=== PATIENT | female | born 1975 | race Caucasian/White ===

== ENCOUNTER 2017-03-10 11:15 | Emergency (ER) | payer BC ==
[~2017-03-10] VITALS: Ht 180.3 cm; Wt 90.9 kg
[2017-03-10 11:19] VITALS: TEMP 36.5; Ht 180.3 cm; Wt 90.9 kg
[2017-03-10] MEDS ORDERED: ONDANSETRON INJ 2 MG/ML 2 ML VIAL IV STA (11:31)
[2017-03-10] MEDS ORDERED: SODIUM CHLORIDE 0.9% 1000ML 1,000 ML IV STA (11:31)
[2017-03-10] MEDS ORDERED: HYDROmorphone INJ 0.5 MG/0.5 ML SYR IV PRN (11:45)
[2017-03-10] MEDS ORDERED: DOXY25TA7 PO (11:48)
[2017-03-10] MEDS ORDERED: DIPH1LIQ PO (11:48)
[2017-03-10 12:19] LABS: BASO % 0.4 %; BASO ABS # 0.04 K/uL (0-0.2); EOS ABS # 0.27 K/uL (0-0.5); HEMATOCRIT 39.2 % (37-47); HEMOGLOBIN 14.3 g/dL (12.0-16.0); IG# 0.02 K/uL (0.00-0.02); LYMPH % 19.8 %; LYMPH ABS # 1.81 K/uL (1.2-3.4); MEAN CELL VOLUME 81.7 fL (80-100); MEAN CORPUSCULAR HEMOGLOBIN 29.8 pg (25-34); MEAN CORPUSCULAR HGB CONC 36.5 g/dl (32-36); MEAN PLATELET VOLUME 11.6 fL (7.4-10.4); MONO % 5.4 %; MONO ABS # 0.49 K/uL (0.11-0.59); NEUT % 71.2 %; PLATELET COUNT 207 K/uL (130-400); RED CELL DISTRIBUTION WIDTH CV 13.7 % (11.5-14.5); RED CELL DISTRIBUTION WIDTH SD 40.9 fL (36.4-46.3); WHITE BLOOD COUNT 9.13 K/uL (4.8-10.8)
[2017-03-10 12:35] LABS: ALBUMIN 3.9 gm/dl (3.4-5.0); CALCIUM 9.3 mg/dl (8.5-10.1); CREATININE 0.98 mg/dl (0.60-1.20); POTASSIUM 3.6 mmol/L (3.5-5.1)
--- NOTE | 2017-03-10 13:35 | DIAGNOSTIC IMAGING REPORT ---
ABD/PELVIS WITHOUT FOR STONE CT DOSE: 1511.51 mGy.cm HISTORY: Flank pain FLANK PAIN-right TECHNIQUE: Multiaxial CT images of the abdomen and pelvis were performed without the use of intravenous and oral contrast according to the standard department stone protocol. A dose lowering technique was utilized adhering to the principles of ALARA. COMPARISON STUDY: None. FINDINGS: Lung bases are clear. Liver spleen and pancreas are unremarkable. Left kidney is negative for hydronephrosis. Right kidney shows slight fullness of the right renal collecting system and right ureter. This appears to be secondary to extrinsic impact upon the ureter from a large fibroid projecting from the superior aspect of the uterus. This has maximum dimensions of 14 x 10 cm. Small associated calcifications are present. Bowel pattern is nonobstructive. There is a trace amount of free fluid within the lower paracolic gutters bilaterally. This may be reactive and/or secondary to extrinsic impact upon the bowel by the fibroid previously described. Bladder is midline. There are no contained calcifications. There is no significant free fluid within the pelvic cul-de-sac. Visualized components of the appendix are unremarkable. The bowel the cecum and associated surrounding structures are somewhat compressed by the fibroid. There are no bowel obstructive changes IMPRESSION: 1. Large uterine fibroid measuring 14 x 10 cm. 2. This appears to be creating extrinsic impact upon the upon the bowel as well as distal right ureter. 3. Mild fullness of the right ureter and right renal collecting system presumably secondary to this extrinsic compressive effect. 4. Study is otherwise negative. The above report was generated using voice recognition software. It may contain grammatical, syntax or spelling errors. Electronically signed by: Ganga Lewis M.D. 03/10/2017 1:34 PM Dictated Date/Time: 03/10/2017 1:26 PM
[2017-03-10] MEDS ORDERED: OXYC1TAB3 PO (14:41)
[2017-03-10 15:10] VITALS: BP 135/79; PULSE 82; O2SAT 96
--- NOTE | 2017-03-10 16:55 | EMERGENCY ROOM VISIT NOTE ---
History Report prepared by Kala: Kailee Stevens Under the Supervision of: Dr. Deep Mendiola M.D. First contact with patient: 11:22 Chief Complaint: FLANK PAIN Stated Complaint: SEVERE PAIN LOWER RIGHT SIDE OF BACK TO FRONT History of Present Illness The patient is a 41 year old female who presents to the Emergency Room with complaints of right-sided flank pain beginning 2 days ago. She rates the pain at a 9/10. The patient states that the pain started in her back and then radiated to her flank. She states that she has noticed that her urine has been darker and states that she has never had a pain like this before. The patient denies rashes and vomiting, but does note having nausea. The patient denies a family history of kidney stones and gall bladder problems. Source of History: patient Onset: 2 days ago Position: other (right flank) Symptom Intensity: rated at a 9/10 Associated Symptoms: + nausea, + urinary symptoms (darker urine), No vomiting, No rash Review of Systems See HPI for pertinent positives and negatives. A total of ten systems were reviewed and were otherwise negative. Past Medical & Surgical Medical Problems: (1) Dermoid cyst (2) Rotator cuff injury Family History No pertinent family history stated. Social History Smoking Status: Never Smoker Marital Status: Housing Status: lives with roommate Current/Historical Medications Scheduled PRN Diphenhydramine Hcl (Sleep) (Zzzquil), 30 ML PO HS PRN for Sleep Doxylamine Succinate (Sleep) (Unisom), 25 MG PO HS PRN for Sleep Oxycodone Ir (Roxicodone Ir), 1-2 TAB PO Q4H PRN for Pain Allergies Coded Allergies: Banana (Verified Allergy, Unknown, ANAPHYLAXIS, 03/10/17) Egg (Verified Allergy, Unknown, ANAPHYLAXIS, 03/10/17) Soy Protein (Verified Allergy, Unknown, ANAPHYLAXIS, 03/10/17) Physical Exam Vital Signs Date Time Temp Pulse Resp B/P (MAP) Pulse Ox O2 Delivery O2 Flow Rate FiO2 03/10/17 15:10 82 18 135/79 96 03/10/17 14:52 67 17 135/79 98 Room Air 03/10/17 13:06 68 17 117/77 98 Room Air 03/10/17 11:19 36.5 85 20 126/72 98 Room Air Physical Exam GENERAL: Awake, alert, uncomfortable-appearing, in no distress HENT: Normocephalic, atraumatic. Oropharynx unremarkable. EYES: Normal conjunctiva. Sclera non-icteric. NECK: Supple. No nuchal rigidity. FROM. No JVD. RESPIRATORY: Clear to auscultation. CARDIAC: Regular rate, normal rhythm. Extremities warm and well perfused. Pulses equal. ABDOMEN: Soft, non-distended. No tenderness to palpation. No rebound or guarding. No masses. RECTAL: Deferred. MUSCULOSKELETAL: Chest examination reveals no tenderness. The back is symmetrical on inspection without obvious abnormality. There is right CVA tenderness to palpation. No joint edema. LOWER EXTREMITIES: Calves are equal size bilaterally and non-tender. No edema. No discoloration. NEURO: Normal sensorium. No sensory or motor deficits noted. SKIN: No rash or jaundice noted. Medical Decision & Procedures ER Provider Diagnostic Interpretation: Radiology results as stated below per my review and radiologist interpretation: ABD/PELVIS WITHOUT FOR STONE CT DOSE: 1511.51 mGy.cm HISTORY: Flank pain FLANK PAIN-right TECHNIQUE: Multiaxial CT images of the abdomen and pelvis were performed without the use of intravenous and oral contrast according to the standard department stone protocol. A dose lowering technique was utilized adhering to the principles of ALARA. COMPARISON STUDY: None. FINDINGS: Lung bases are clear. Liver spleen and pancreas are unremarkable. Left kidney is negative for hydronephrosis. Right kidney shows slight fullness of the right renal collecting system and right ureter. This appears to be secondary to extrinsic impact upon the ureter from a large fibroid projecting from the superior aspect of the uterus. This has maximum dimensions of 14 x 10 cm. Small associated calcifications are present. Bowel pattern is nonobstructive. There is a trace amount of free fluid within the lower paracolic gutters bilaterally. This may be reactive and/or secondary to extrinsic impact upon the bowel by the fibroid previously described. Bladder is midline. There are no contained calcifications. There is no significant free fluid within the pelvic cul-de-sac. Visualized components of the appendix are unremarkable. The bowel the cecum and associated surrounding structures are somewhat compressed by the fibroid. There are no bowel obstructive changes IMPRESSION: 1. Large uterine fibroid measuring 14 x 10 cm. 2. This appears to be creating extrinsic impact upon the upon the bowel as well as distal right ureter. 3. Mild fullness of the right ureter and right renal collecting system presumably secondary to this extrinsic compressive effect. 4. Study is otherwise negative. The above report was generated using voice recognition software. It may contain grammatical, syntax or spelling errors. Electronically signed by: Ganga Lewis M.D. 03/10/2017 1:34 PM Dictated Date/Time: 03/10/2017 1:26 PM Laboratory Results 03/10/17 12:00 Red Blood Count 4.80, Mean Corpuscular Volume 81.7, Mean Corpuscular Hemoglobin 29.8, Mean Corpuscular Hemoglobin Concent 36.5, Mean Platelet Volume 11.6, Neutrophils (%) (Auto) 71.2, Lymphocytes (%) (Auto) 19.8, Monocytes (%) (Auto) 5.4, Eosinophils (%) (Auto) 3.0, Basophils (%) (Auto) 0.4, Neutrophils # (Auto) 6.50, Lymphocytes # (Auto) 1.81, Monocytes # (Auto) 0.49, Eosinophils # (Auto) 0.27, Basophils # (Auto) 0.04 03/10/17 12:00 Test 03/10/17 11:35 03/10/17 12:00 Urine Color YELLOW Urine Appearance CLEAR (CLEAR) Urine pH 5.0 (4.5-7.5) Urine Specific [place] 1.016 (1.000-1.030) Urine Protein NEG (NEG) Urine Glucose (UA) NEG (NEG) Urine Ketones NEG (NEG) Urine Occult Blood NEG (NEG) Urine Nitrite NEG (NEG) Urine Bilirubin NEG (NEG) Urine Urobilinogen NEG (NEG) Urine Leukocyte Esterase MODERATE (NEG) Urine WBC (Auto) 10-30 /hpf (0-5) Urine RBC (Auto) 5-10 /hpf (0-4) Urine Hyaline Casts (Auto) 1-5 /lpf (0-5) Urine Epithelial Cells (Auto) 20-30 /lpf (0-5) Urine Bacteria (Auto) NEG (NEG) Urine Test NEG (NEG) White Blood Count 9.13 K/uL (4.8-10.8) Red Blood Count 4.80 M/uL (4.2-5.4) Hemoglobin 14.3 g/dL (12.0-16.0) Hematocrit 39.2 % (37-47) Mean Corpuscular Volume 81.7 fL (80-100) Mean Corpuscular Hemoglobin 29.8 pg (25-34) Mean Corpuscular Hemoglobin Concent 36.5 g/dl (32-36) Platelet Count 207 K/uL (130-400) Mean Platelet Volume 11.6 fL (7.4-10.4) Neutrophils (%) (Auto) 71.2 % Lymphocytes (%) (Auto) 19.8 % Monocytes (%) (Auto) 5.4 % Eosinophils (%) (Auto) 3.0 % Basophils (%) (Auto) 0.4 % Neutrophils # (Auto) 6.50 K/uL (1.4-6.5) Lymphocytes # (Auto) 1.81 K/uL (1.2-3.4) Monocytes # (Auto) 0.49 K/uL (0.11-0.59) Eosinophils # (Auto) 0.27 K/uL (0-0.5) Basophils # (Auto) 0.04 K/uL (0-0.2) RDW Standard Deviation 40.9 fL (36.4-46.3) RDW Coefficient of Variation 13.7 % (11.5-14.5) Immature Granulocyte % (Auto) 0.2 % Immature Granulocyte # (Auto) 0.02 K/uL (0.00-0.02) Anion Gap 6.0 mmol/L (3-11) Est Creatinine Clear Calc Drug Dose 94.0 ml/min Estimated GFR () 83.0 Estimated GFR (Non- 71.6 BUN/Creatinine Ratio 14.8 (10-20) Calcium Level 9.3 mg/dl (8.5-10.1) Total Bilirubin 0.8 mg/dl (0.2-1) Direct Bilirubin 0.2 mg/dl (0-0.2) Aspartate Amino Transf (AST/SGOT) 8 U/L (15-37) Alanine Aminotransferase (ALT/SGPT) 28 U/L (12-78) Alkaline Phosphatase 129 U/L (45-117) Total Protein 8.0 gm/dl (6.4-8.2) Albumin 3.9 gm/dl (3.4-5.0) Lipase 143 U/L (73-393) Laboratory results reviewed by me Medications Administered Medications (Trade) Dose Ordered Sig/Daya Route Start Time Stop Time Status Last Admin Dose Admin Ondansetron HCl (Zofran Inj) 4 mg NOW STAT IV 03/10/17 11:31 03/10/17 11:33 DC 03/10/17 12:16 4 MG Sodium Chloride 1,000 ml @ 999 mls/hr Q1H1M STAT IV 03/10/17 11:31 03/10/17 12:31 DC 03/10/17 12:16 999 MLS/HR Hydromorphone HCl (Dilaudid Inj) 0.5 mg Q15M PRN IV 03/10/17 11:45 03/10/17 15:30 DC 03/10/17 12:21 0.5 MG ED Course 1130: The patient was evaluated in room C9. A complete history and physical exam was performed. 1131: Ordered Sodium Chloride 1,000 ml @ 999 mls/hr IV, Zofran Inj 4 mg IV. 1145: Ordered Dilaudid Inj 0.5 mg IV. 1435: Discussed the patient's case with Dr. De Jesus. Dr. De Jesus instructed that the patient call the office for follow-up. 1445: I reevaluated the patient. Discussed results and discharge instructions: She verbalized understanding and agreement. The patient is ready for discharge. Medical Decision Triage Nursing notes reviewed and agree them. Additional history obtained from the family. The patient's history was concerning for flank and abdominal pain. Differential diagnosis: Etiologies such as renal colic, appendicitis, diverticulitis, mesenteric ischemia, aortic pathology, infections, inflammatory bowel disease, PUD, biliary pathology, UTI, as well as others were entertained. Physical examination findings: As above. ER treatment provided: IV Zofran IV Dilaudid IV normal saline On reassessment the patient felt better. Diagnostic interpretation by me: The labs revealed workup CBC and chemistry panel. Urinalysis revealed no significant abnormalities. There was no sign of UTI. Imaging studies: CT of the abdomen and pelvis as above. Consultation: A consultation was placed with the industrial pharmacist recreational therapist, Dr. De Jesus. The case was discussed and diagnostics were reviewed. Given the findings of the significant size of the fibroid the patient will need to be seen urgently in the office. She asked for the patient to call Sunday. It appears that the patient has isolated renal colic from a ureteral compression secondary to a 10 x 14 cm uterine fibroid. By the evaluation outlined above emergent etiologies such as appendicitis, diverticulitis, mesenteric ischemia, aortic pathology, infections, inflammatory bowel disease, PUD, biliary pathology, UTI, as well as others were deemed relatively unlikely. The and were informed about the findings as listed above. All questions were answered and they were pleased with the treatment. Return instructions were outlined and the patient was discharged in stable condition. Outpatient prescription management: Oxy IR 5mg 1-2 po Q4 hrs prn Referral: The pt was referred to [facility] for follow up care regarding her significant fibroid. [place] Drug Monitoring Program Search Results: patient reviewed within database Drug Monitoring Findings: primary prescriptions noted but nothing recently Medication Reconcilliation Current Medication List: was personally reviewed by me Blood Pressure Screening Patient's blood pressure: Normal blood pressure Consults Time Called: 1433 [facility] Returned Call: [phone] Discussed the patient's case. The patient will be evaluated for further treatment and disposition. Impression Primary Impression: Right flank pain Additional Impression: Uterine fibroid Scribe Attestation The scribe's documentation has been prepared under my direction and personally reviewed by me in its entirety. I confirm that the note above accurately reflects all work, treatment, procedures, and medical decision making performed by me. Departure Information Dispostion Home / Self-Care Prescriptions Oxycodone Ir (Roxicodone Ir) 5 Mg Tab 1-2 TAB PO Q4H Y for Pain, #15 TAB Prov: Deep Mendiola MD 03/10/17 Referrals No Doctor, Assigned (PCP) Velia Rhodes M.D. Forms HOME CARE DOCUMENTATION FORM, IMPORTANT VISIT INFORMATION Patient Instructions My [facility] Additional Instructions Oxycodone Immediate Release (OxyIR) 5mg: Take 1-2 pills every four hours for pain. Avoid alcohol, operating machinery or dangerous equipment, working on ladders or roofs, DRIVING, or situations where being under the influence may be dangerous. It is recommended to use an [id number]-pvauxte stool softener such as Colace, 100mg twice daily while taking this medication to avoid constipation. Ibuprofen(Motrin, Advil) may be used for fever or pain. Use 600mg every six hours as needed. Take with food. Avoid using more than 2400mg in a 24 hour period. Do not use 2400mg per day for more than three consecutive days without physician direction. Prolonged inappropriate use can lead to stomach upset or ulcers. This medication can be taken if you need to drive, work, or perform activities which may be dangerous when taking narcotic pain medication. (AND/OR) Acetaminophen(Tylenol) may be used for fever or pain. Use 1000mg every six hours as needed. Avoid using more than 4000mg in a 24 hour period. This medication can be taken if you need to drive, work, or perform activities which may be dangerous when taking narcotic pain medication. Rest and avoid strenuous activity until your symptoms resolve. Drink plenty of fluids. Return to the ER for worsening abdominal or back pain, vomiting, fevers, passing out, or as needed. Follow up with [facility] office Sunday to arrange a visit. The number is listed below under Dr. De Jesus. Problem Qualifiers
== END 2017-03-10 15:12 | disposition home or self-care (01) ==
LOC: C.EDB 11:17 → C.EDC 15:12
DX: D25.9 Leiomyoma of uterus, unspecified (principal)

== ENCOUNTER → 2017-03-14 | Outpatient (CLI) | payer BC ==
[~2017-03-14] MED LIST: DIPH1LIQ PO; DOXY25TA7 PO; IBUP-1050 PO; MELATAB2 PO; OXYC1TAB3 PO; PROM25TA9 PO; TRAM-10 PO
== END | disposition home or self-care (01) ==
LOC: C.PAPS 09:36
PROVIDERS: ATTEND Obstetrics & Gynecology
DX: Z12.4 Encounter for screening for malignant neoplasm of cervix (principal)

== ENCOUNTER → 2017-03-19 | Outpatient (CLI) | payer BC ==
[2017-03-19 14:19] LABS: BASO % 0.3 %; BASO ABS # 0.03 K/uL (0-0.2); EOS % 1.4 %; EOS ABS # 0.13 K/uL (0-0.5); HEMOGLOBIN 13.6 g/dL (12.0-16.0); IG# 0.03 K/uL (0.00-0.02); LYMPH % 13.6 %; LYMPH ABS # 1.29 K/uL (1.2-3.4); MEAN CELL VOLUME 81.9 fL (80-100); MEAN CORPUSCULAR HEMOGLOBIN 29.3 pg (25-34); MEAN CORPUSCULAR HGB CONC 35.8 g/dl (32-36); MEAN PLATELET VOLUME 11.9 fL (7.4-10.4); MONO % 4.6 %; MONO ABS # 0.44 K/uL (0.11-0.59); NEUT % 79.8 %; NEUT ABS # 7.58 K/uL (1.4-6.5); PLATELET COUNT 227 K/uL (130-400); RED CELL DISTRIBUTION WIDTH CV 13.7 % (11.5-14.5); RED CELL DISTRIBUTION WIDTH SD 41.4 fL (36.4-46.3)
== END | disposition home or self-care (01) ==
LOC: C.LAB1850 13:28
PROVIDERS: ATTEND Obstetrics & Gynecology
DX: R10.2 Pelvic and perineal pain (principal)

== ENCOUNTER → 2017-03-19 | Outpatient (CLI) | payer BC | END | disposition home or self-care (01) | LOC: C.PATHSPEC 17:28 | PROVIDERS: ATTEND Obstetrics & Gynecology | DX: N85.00 Endometrial hyperplasia, unspecified (principal); D25.9 Leiomyoma of uterus, unspecified ==

== ENCOUNTER 2017-03-26 07:46 | Inpatient (IN) | payer BC ==
[2017-03-20 15:44] VITALS: BMI 29.0
[2017-03-26] VITALS (8 sets, daily range): BP systolic 105–136; BP diastolic 35–91; PULSE 60–101; TEMP 36.3–36.9; O2SAT 94–99; Ht 177.8 cm; Wt 90.9 kg
[~2017-03-26] VITALS: Ht 177.8 cm; Wt 90.9 kg
[~2017-03-26 07:46] MED LIST changes: -DIPH1LIQ PO; -DOXY25TA7 PO; +LACTATED RINGER'S 1000ML 1,000 ML IV SCH; -OXYC1TAB3 PO
--- NOTE | 2017-03-26 09:29 | History & Physical Bridge Note ---
H&P Re-Evaluation Bridge Note: I have examined the patient, reviewed the History & Physical and in the interval since the performance of the History & Physical I have noted the following changes of clinical significance: No changes noted
[2017-03-26] MEDS ORDERED: METHYLENE BLUE 0.5% 10 ML VIAL ONE (09:31)
[2017-03-26] MEDS ORDERED: BUPIVACAINE 0.5 % 5 MG/1 ML MPF 30ML VIAL ONE (09:31)
[2017-03-26] MEDS ORDERED: MIDAZOLAM HCL 1 MG/ML 2ML VIAL ONE (09:37)
[2017-03-26] MEDS ORDERED: FENTANYL CITRATE INJ 50 MCG/1 ML 2 ML VIAL ONE ×4 (09:38→12:25)
[2017-03-26] MEDS ORDERED: CLINDAMYCIN 600 MG/54 ML D5W IV ONE (09:38)
[2017-03-26] MEDS ORDERED: ETOMIDATE 2 MG/ML 20 ML VIAL IV ONE (10:17)
[2017-03-26] MEDS ORDERED: ONDANSETRON INJ 2 MG/ML 2 ML VIAL ONE ×2 (10:18→12:47)
[2017-03-26] MEDS ORDERED: ROCURONIUM BROMIDE 10 MG/ML 5 ML VIAL IV ONE ×2 (10:18→10:39)
[2017-03-26] MEDS ORDERED: NEOSTIGMINE METHYLSULFATE 5 MG/5 ML SYR ONE (10:19)
[2017-03-26] MEDS ORDERED: GLYCOPYRROLATE INJ 0.2 MG/ML VIAL ONE (10:19)
[2017-03-26] MEDS ORDERED: DEXAMETHASONE SOD INJ 4 MG/ML VIAL ONE (10:19)
[2017-03-26] MEDS ORDERED: DEXTROSE 5% IV SCH (10:45)
[2017-03-26] MEDS ORDERED: NURSING VERBAL MED ORDER ONE (10:45)
[2017-03-26] MEDS ORDERED: GENTAMICIN IV SCH (10:45)
[2017-03-26] MEDS ORDERED: PHENYLEPHRINE 100MCG/ML 5ML SYR ONE (11:08)
[2017-03-26] MEDS ORDERED: HYDROmorphone INJ 1 MG/ML SYR IV PRN (11:45)
[2017-03-26] MEDS ORDERED: FENTANYL CITRATE INJ 50 MCG/1 ML 2 ML VIAL IV PRN (11:45)
[2017-03-26] MEDS ORDERED: LABETALOL HCL IV 5 MG/ML 20ML IV PRN (11:45)
[2017-03-26] MEDS ORDERED: ATROPINE SULFATE 0.1 MG/ML 5ML SYR IV PRN (11:45)
[2017-03-26] MEDS ORDERED: ONDANSETRON INJ 2 MG/ML 2 ML VIAL IV PRN ×2 (11:45→12:30)
[2017-03-26] MEDS ORDERED: EpHEDrine SULFATE INJ 50 MG/ML AMP IV PRN (11:45)
[2017-03-26] MEDS ORDERED: MEPERIDINE HCL 25 MG/ML CARP IV PRN (11:45)
[2017-03-26] MEDS ORDERED: LACTATED RINGER'S 1000ML 1,000 ML IV SCH (12:23)
[2017-03-26] MEDS ORDERED: SODIUM CHLORIDE 0.9% 1000ML 1,000 ML IV SCH (12:23)
--- NOTE | 2017-03-26 12:23 | [facility] Post Operative Brief Note ---
Immediate Operative Summary Operative Date Mar 26, 2017. Pre-Operative Diagnosis Leiomyoma Uteri, Pelvic Pain Post-Operative Diagnosis same, degenerating fibroid Procedure(s) Performed 1. diagnostic laparoscopy 2. total abdominal hysterectomy 3. excision pedunculated fibroid 4. bilateral salpingectomies. Surgeon Dr. Chaudhari Manager Medical Affairs Surgeon(s) Dr. Archuleta Estimated Blood Loss 50 Findings See Below (large [id number] fibroid emanating from broad attachment of about 4cm at uterus posterior right fundus. normal ovaries bilaterally. left ovary with some filmy adhesions to colon. normal fallopian tubes bilaterally) as noted Fluids (cc crystalloids) 1000 Specimens Frozen 1.Presumed Right Fibroid Drains dorman Anesthesia Type General Complication(s) none Disposition Accompanied Pt To Recover: no Disposition: Recovery Room / PACU
[2017-03-26] MEDS ORDERED: NALOXONE HCL 0.4 MG/1 ML VIAL/CARP IV PRN (12:30)
[2017-03-26] MEDS ORDERED: OXYCODONE/ACETAMINOPHEN 5-325 TAB PO PRN (12:30)
[2017-03-26] MEDS ORDERED: KETOROLAC TROMETHAMINE 30 MG/ML VIAL IV. PRN (12:30)
--- NOTE | 2017-03-26 12:42 | DIAGNOSTIC IMAGING REPORT ---
KUB CLINICAL HISTORY: INCORRECT COUNT COMPARISON STUDY: CT of the abdomen and pelvis March 10, 2017. FINDINGS: The bowel gas pattern is normal. Extraluminal gas within the pelvis is postsurgical. There are no unexpected radiopaque foreign bodies within the mid to lower abdomen or pelvis. IMPRESSION: No unexpected radiopaque foreign bodies. Electronically signed by: Khai Verde M.D. 03/26/2017 12:41 PM Dictated Date/Time: 03/26/2017 12:41 PM
[2017-03-26] MEDS ORDERED: HYDROmorphone INJ 1 MG/ML SYR ONE (12:44)
[2017-03-26] MEDS: FENTANYL CITRATE INJ 50 MCG/1 ML 2 ML VIAL ONE ×2 (12:45→13:01)
[2017-03-26] MEDS ORDERED: MoRPHine SULFATE 1 MG/ML 50 ML PCA CASS ONE (12:57)
--- NOTE | 2017-03-26 13:25 | OPERATIVE REPORT ---
DATE OF OPERATION: 03/26/2017 PREOPERATIVE DIAGNOSES: 1. Fibroid uterus. 2. Pelvic pain. POSTOPERATIVE DIAGNOSES: 1. Same. 2. Degenerating fibroid. PROCEDURES: 1. Diagnostic laparoscopy. 2. Total abdominal hysterectomy. 3. Excision of fibroid. 4. Bilateral salpingectomies. SURGEON: Dr. Bren Chaudhari. DIE FINISHER: Dr. Vadim Archuleta. INTRAVENOUS FLUIDS: 1000 mL. BLOOD LOSS: 50 mL. ANESTHESIA: General. FINDINGS: 14 x 14 cm fibroid emanating from a l4cm broad attachment on the posterior right uterus. Normal ovaries and fallopian tubes bilaterally. Normal uterus. Left ovary with some filmy adhesions to the colon on the left. INDICATIONS: A 41-year-old who has completed her childbearing, who presented approximately 2 weeks ago to the Emergency Room with severe pelvic pain and evidence of a large fibroid uterus. She was evaluated and opted to proceed with surgical removal of fibroid uterus. We planned to keep the ovaries in situ if they appeared normal. She did have a history of a prior dermoid cyst removal on the left ovary. DESCRIPTION OF PROCEDURE: The patient was taken to the operating room and identified. After adequate general anesthesia was obtained, she was placed in the dorsal lithotomy position and prepped and draped in the usual sterile fashion. A Johnson catheter was placed under sterile conditions. Attempt was made to dilate the cervix after the cervix was grasped on its anterior lip with an Allis clamp; however, this was difficult and therefore stopped. All retractors were removed. Attention was turned to the patient's abdomen, where a Veress needle puncture hole was made at the infraumbilical site and a pneumoperitoneum was created with the Veress needle after an opening pressure of approximately 6 mmHg. An incision site was made in the left upper quadrant and an 11-mm optical trocar was placed under direct visualization to the peritoneal cavity. The camera was introduced and the patient was placed in Trendelenburg. A large mass was encountered that appeared to be emanating from the right uterus, mobile to the left; however, very large. It was blanched in its appearance and had some irregularity to its surface. The uterus was of top normal size but the ovaries were not well seen. Given that an additional 5-mm trocar site was created suprapubically, first creating skin incision and then placing under direct visualization a 5-mm trocar. This allowed a blunt grasper to be placed, which could elevate the uterus, revealing normal left and right ovaries bilaterally, apart from some adhesions as noted above. The mass was again large and firm and decision was made to discontinue the laparoscopic procedures and proceed to open abdominal hysterectomy and excision of the mass for frozen section evaluation. The patient was flattened out. A knife was used to create a low vertical incision that was carried down to the underlying layer of fascia. The fascia was opened in the midline with the cautery. This was extended superior and inferiorly using the cautery. The rectus muscles were bluntly in the midline. The peritoneum was elevated with 2 hemostats and sharply entered into using the knife. This opening was extended superiorly and inferiorly with direct visualization of the bladder. The opening was stretched. The opening was extended towards the pubic bone. This allowed for elevation of the mass and visualization of its attachment to the right posterior fundus. This attachment was broad. It was cross clamped using Azeb clamps coming from each side. This specimen was completely transected and handed off to be sent for frozen section. The capsule of it seemed had a irregular contour and was very blanched. The stumps at the site of transection on the uterus were suture transfixed with 0 Vicryl to allow for removal of the clamps that were attached to the uterus itself. At this point, the decision was made to proceed with the planned hysterectomy. Two Azeb clamps were used to elevate the cornu on each side. The right round ligament was elevated using a Britt clamp. It was suture transfixed. It was then transected with Bovie cautery and the anterior and posterior leaves of the broad ligament were opened up into. It is important to mention that at the time of laparoscopy, the ureter was seen coursing well below the mass on the right side. Once again, the ureter was thought to be coursing well below the planned operative site. Clear space was made in the uteroovarian ligament and the uterine ovarian and broad ligament attachments were cross clamped doubly and then transected. The pedicle was suture transfixed and free tied with 0 Vicryl. The uterine artery pedicle was skeletonized on this side and the bladder flap was begun on the right side. Attention was then turned to the left round ligament, which was elevated, suture transfixed and then transected with Bovie cautery. The anterior and posterior leaves of the broad ligament were also opened up into and the ureter was seen coursing well below the planned operative site. A free space was created beneath the uterine ovarian pedicle on the left side. It was crossclamped x2 and transected. The pedicle was both free tied and suture transfixed with 0 Vicryl. The uterine artery was also skeletonized on this side and the bladder was pushed well away from the planned operative site. Using curved Cisco clamps as well as a straight Cisco clamps, the uterine artery pedicles were doubly cross clamped, transected and doubly ligated. The remaining cardinal ligament attachments were further taken down sequentially using the clamp followed by transection and suture ligation. Once the dissection was thought to be well enough to come across underneath the cervix, two curved Cisco clamps were used to come underneath the cervix. The cervix was carved away from the upper vagina. Pedicles were then suture transfixed with 0 Vicryl. The cuff was then closed with interrupted [id number] sutures of 0 Vicryl. The pelvis was irrigated. There was no active bleeding from the cuff site. The bilateral fallopian tubes were elevated and were transected and sent as specimen. The ureters were seen coursing well below the operative site as well as being of normal size. At this point, the procedure was terminated. During the course of the surgery, the pathologist did call with the findings of the frozen sections, which were degenerating fibroid and typical leiomyoma. All the retractors were removed as well as any packing. The fascia was reapproximated in the modified Smead-Godwin fashion using #1 PDS. Subcutaneous fat was irrigated. It was reapproximated using 2-0 chromic. The skin incisions were closed in a subcuticular fashion using 4-0 Vicryl. This included a left upper quadrant laparoscopic incision. The laparoscopic incision site and the veress needle site were injected with Marcaine and dressed with Dermabond. Steri-Strips were applied the vertical skin incision site and routine dressing was also applied. The patient was returned to supine position. She was awoken from anesthesia. All sponge and needle counts were correct however, the instrument count was off and therefore , an x-ray was performed showing no instruments within the abdomen. At this point, the procedure was terminated. She was transferred to the recovery room in stable condition. I attest to the content of the Intraoperative Record and any orders documented therein. Any exceptions are noted below. MTDD
--- NOTE | 2017-03-26 13:47 | Anesthesiology Progress Note ---
Anesthesia Post Op Note Date & Time Mar 26, 2017 at 13:47 Vital Signs Pain Intensity: 5 Vital Signs Past 12 Hours Date Time Temp Pulse Resp B/P (MAP) Pulse Ox O2 Delivery O2 Flow Rate FiO2 03/26/17 13:41 112/59 03/26/17 13:40 36.4 58 12 112/59 99 Nasal Cannula 2 03/26/17 13:37 73 15 03/26/17 13:37 76 15 98 03/26/17 13:36 93/81 03/26/17 13:34 62 10 03/26/17 13:34 60 10 99 03/26/17 13:31 94/61 03/26/17 13:29 61 10 03/26/17 13:29 63 10 97 03/26/17 13:26 119/65 03/26/17 13:24 53 14 03/26/17 13:24 52 14 98 03/26/17 13:21 100/67 03/26/17 13:19 60 16 03/26/17 13:19 57 16 98 03/26/17 13:17 112/50 03/26/17 13:14 57 13 03/26/17 13:14 58 13 99 03/26/17 13:11 119/76 03/26/17 13:09 60 19 99 03/26/17 13:09 61 19 03/26/17 13:07 114/67 03/26/17 13:04 61 10 100 03/26/17 13:04 60 10 03/26/17 13:01 111/62 03/26/17 12:59 68 19 03/26/17 12:59 70 19 99 03/26/17 12:57 117/49 03/26/17 12:54 54 10 98 03/26/17 12:54 53 10 03/26/17 12:51 111/67 03/26/17 12:49 51 14 03/26/17 12:49 51 14 98 03/26/17 12:46 123/83 03/26/17 12:44 57 03/26/17 12:44 57 127/80 99 03/26/17 12:44 36.3 56 14 123/83 99 Nasal Cannula 2 03/26/17 08:10 36.8 101 20 136/91 (106) 99 Room Air Notes Mental Status: alert / awake / arousable, participated in evaluation Pt Amnestic to Procedure: Yes Nausea / Vomiting: adequately controlled, improving with treatment Pain: adequately controlled Airway Patency, RR, SpO2: stable & adequate BP & HR: stable & adequate Hydration State: stable & adequate Anesthetic Complications: no major complications apparent
[2017-03-26] MEDS ORDERED: PROMETHAZINE HCL INJ 12.5 MG in SODIUM CHLORIDE 0.9% 50ML 50 ML IV PRN (14:00)
[2017-03-26] MEDS ORDERED: KETOROLAC TROMETHAMINE 30 MG/ML VIAL ONE (14:41)
[2017-03-26] MEDS: MoRPHine SULFATE 1 MG/ML 50 ML PCA CASS IV PRN ×2 (19:13→21:49)
[2017-03-27] MEDS: IBUPROFEN 600 MG TAB PO PRN ×2 (03:24→12:52)
[2017-03-27 03:45] VITALS: BP 105/67; PULSE 67; TEMP 36.8
[2017-03-27] MEDS ORDERED: NURSING VERBAL MED ORDER ONE (04:00)
[2017-03-27 07:30] VITALS: BP 103/74; PULSE 72; TEMP 36.7
--- NOTE | 2017-03-27 07:32 | Discharge Instructions ---
Discharge Instructions Date of Service Mar 27, 2017. Admission Reason for Admission: Leiomyoma Uteri, Pelvic Pain Discharge Discharge Diagnosis / Problem: after surgery Discharge Goals Goal(s): Routine recovery after surgery Activity Recommendations Activity Limitations: as noted below . Instructions / Follow-Up Instructions / Follow-Up ACTIVITY RECOMMENDATIONS: Activity: * During the first week at home, your activity should be similar to that done at the hospital prior to discharge. Your primary activity is in-house walking interspersed with rest periods. Preparing lunch for yourself is acceptable. You may go up and down stairs. Try to stay up progressively longer periods of time to help regain your strength more quickly. * During the second week at home, activities should include some meal preparation, walking to strengthen abdominal muscles and riding in a car. You may drive a car and make brief shopping trips at the end of the second week at home. * Lifting should not exceed 15-20 pounds during the first month after surgery. * Sexual intercourse can usually be resumed about 6 weeks after surgery depending on findings at your post-operative examinations. Bathing: * Showers or baths are permissible. SPECIAL CARE INSTRUCTIONS: The major discomforts related to surgery have now passed and progressive improvement will occur. The tight uncomfortable feeling in the abdominal, pelvic and back area will gradually fade away. Fatigue may take the longest to disappear; your energy level may take several weeks to return to normal. At times you may become frustrated or impatient over not feeling as well or doing as much as you'd like , but this is a normal reaction to surgery and will pass with time. Vaginal Discharge: * Odorous, blood-tinged or brownish discharge may be present for one to three weeks after surgery. * Pads should be used and not tampons. * Stitches may be passed vaginally. * Bleeding may be somewhat increased approximately two weeks after surgery, which is related to the stitches dissolving. * If bleeding becomes free flowing, notify our office at . Bowel Care: * Constipation after surgery is very common. Foods that promote bowel activity (bran, fruit, prune juice) should be included in your diet. * A capsule, DIALOSE-PLUS, can be purchased without a prescription and can be taken daily (one or two capsules) to assist in promoting bowel activity. * If you have had vaginal surgery involving your rectum, we will discuss this when discharged from the hospital. Temperature: * Any fever above 100.4 degrees F should be reported to our office at . FOLLOW-UP: Post-Operative Appointments: * Individual instructions will have been given about the timing of your first examination, but this is usually at the end of the second week home. * You will need to call the office at soon after discharge to make the appointment for your post-op check-up if it has not already been scheduled. * Additional information regarding activity, sexual intercourse and when to return to work will be given at this appointment. WE WISH YOU A SPEEDY RECOVERY! Current Hospital Diet Patient's current hospital diet: Full Liquid Diet Discharge Diet Recommended Diet: Regular Diet Procedures Procedures Performed: Diagnostic Laparoscopy; Total Abdominal Hysterectomy; Excision Fibroid; Bilateral Salpingectomies Pending Studies Studies pending at discharge: yes List of pending studies: pathology Medical Emergencies . Who to Call and When: Medical Emergencies: If at any time you feel your situation is an emergency, please call 911 immediately. . Non-Emergent Contact Non-Emergency issues call your: Hub Cutter Apprentice . . "Provider Documentation" section prepared by Bren Chaudhari. . VTE Core Measure Inpt VTE Proph given/why not?: SCD's [place] Drug Monitoring Program Search Results: patient reviewed within database, no issues identified
[2017-03-27 08:14] LABS: BASO % 0.1 %; BASO ABS # 0.01 K/uL (0-0.2); EOS % 0.1 %; EOS ABS # 0.02 K/uL (0-0.5); HEMATOCRIT 33.7 % (37-47); HEMOGLOBIN 11.3 g/dL (12.0-16.0); IG# 0.03 K/uL (0.00-0.02); LYMPH % 10.5 %; LYMPH ABS # 1.54 K/uL (1.2-3.4); MEAN CORPUSCULAR HEMOGLOBIN 28.2 pg (25-34); MEAN CORPUSCULAR HGB CONC 33.5 g/dl (32-36); MEAN PLATELET VOLUME 11.7 fL (7.4-10.4); MONO % 6.8 %; NEUT % 82.3 %; NEUT ABS # 12.01 K/uL (1.4-6.5); PLATELET COUNT 198 K/uL (130-400); RED CELL DISTRIBUTION WIDTH CV 14.1 % (11.5-14.5); RED CELL DISTRIBUTION WIDTH SD 43.6 fL (36.4-46.3); WHITE BLOOD COUNT 14.61 K/uL (4.8-10.8)
--- NOTE | 2017-03-27 08:19 | Progress Note ---
Progress Note Date of Service Mar 27, 2017. Progress Note s/ doing well, voiding, ambulating to br. no flatus yet. eating and no n/v. having itching and thinks its the percocet, wants to try ultram again. has about 4 tabs left at home. o/ af vss cor rrr, lungs ctab, abd soft nabs, mild tenderness incision bloody steris, intact. ext nt calves a/ pod #1 s/p PATRICK, fibroid removal p/ doing well, will see if ultram covers pain. ambulate, await flatus. can consider d/c later today or by tomorrow. pt aware.
[2017-03-27] MEDS ORDERED: TRAM-10 PO (08:20)
[2017-03-27] MEDS: TRAMADOL HCL 50 MG TAB PO PRN ×2 (09:15→14:59)
[2017-03-27 15:00] VITALS: BP 112/73; PULSE 88; TEMP 36.5
[2017-03-27 18:18] VITALS: BP 112/73; PULSE 88; TEMP 36.5; O2SAT 94
[2017-03-27 20:00] VITALS: BP 110/70; PULSE 80; TEMP 36.7; O2SAT 98
== END 2017-03-27 20:00 | disposition home or self-care (01) | DRG 743 ==
LOC: C.ACU 07:46 → C.MS4N 12:26 → ENRESERV 13:23 → C.OBG 21:44
PROVIDERS: ADMIT Obstetrics & Gynecology; ATTEND Obstetrics & Gynecology
PROC: 0UT70ZZ Resection of Bilateral Fallopian Tubes, Open Approach (ICD-10-PCS; principal; 2017-03-26 09:30)
PROC: 0UT90ZZ Resection of Uterus, Open Approach (ICD-10-PCS; principal; 2017-03-26 09:30)
DX: D25.9 Leiomyoma of uterus, unspecified (principal); F41.8 Other specified anxiety disorders; Z87.42 Personal history of other diseases of the female genital tract; Z86.19 Personal history of other infectious and parasitic diseases; Z83.3 Family history of diabetes mellitus

== ENCOUNTER 2017-03-30 08:23 | Emergency (ER) | payer BC ==
[~2017-03-30] VITALS: Ht 177.8 cm; Wt 88.4 kg
[~2017-03-30 08:23] MED LIST changes: -LACTATED RINGER'S 1000ML 1,000 ML IV SCH; -PROM25TA9 PO
[2017-03-30 08:26] VITALS: Ht 177.8 cm; Wt 88.4 kg
[2017-03-30] MEDS ORDERED: HYDROmorphone INJ 1 MG/ML SYR IV STA ×2 (08:57→09:57)
[2017-03-30] MEDS ORDERED: ONDANSETRON INJ 2 MG/ML 2 ML VIAL IV STA ×2 (08:57→11:26)
[2017-03-30] MEDS ORDERED: SODIUM CHLORIDE 0.9% 1000ML 1,000 ML IV STA (08:57)
[2017-03-30] MEDS ORDERED: OPTIRAY 320 IV PRN (09:15)
[2017-03-30 09:25] LABS: BASO % 0.3 %; BASO ABS # 0.02 K/uL (0-0.2); EOS % 4.1 %; HEMATOCRIT 33.1 % (37-47); HEMOGLOBIN 11.9 g/dL (12.0-16.0); IG# 0.02 K/uL (0.00-0.02); LYMPH % 16.8 %; LYMPH ABS # 1.22 K/uL (1.2-3.4); MEAN CELL VOLUME 82.5 fL (80-100); MEAN CORPUSCULAR HEMOGLOBIN 29.7 pg (25-34); MEAN PLATELET VOLUME 11.1 fL (7.4-10.4); MONO % 5.5 %; NEUT ABS # 5.31 K/uL (1.4-6.5); PLATELET COUNT 200 K/uL (130-400); RED CELL DISTRIBUTION WIDTH CV 13.6 % (11.5-14.5); RED CELL DISTRIBUTION WIDTH SD 41.1 fL (36.4-46.3); WHITE BLOOD COUNT 7.27 K/uL (4.8-10.8)
[2017-03-30 09:43] LABS: ALBUMIN 3.7 gm/dl (3.4-5.0); CREATININE 0.69 mg/dl (0.60-1.20); POTASSIUM 3.6 mmol/L (3.5-5.1)
[2017-03-30 09:46] LABS: TOTAL PROTEIN 7.6 gm/dl (6.4-8.2)
[2017-03-30 10:59] VITALS: TEMP 36.7
--- NOTE | 2017-03-30 11:24 | DIAGNOSTIC IMAGING REPORT ---
CT ABD/PELVIS IV AND ORAL CONT CLINICAL HISTORY: History of recent hysterectomy. Abdominal pain bloating. COMPARISON STUDY: 03/10/2017 TECHNIQUE: Following the IV administration of 94 mL of Optiray-320, CT scan of the abdomen and pelvis was performed from the lung bases to the proximal femurs. Images are reviewed in the axial, sagittal, and coronal planes. IV contrast was administered without complication. A dose lowering technique was utilized adhering to the principles of ALARA. CT DOSE: 607.05 mGy.cm FINDINGS: Lower chest: There are minimal left basilar atelectatic changes. Liver: There is a stable 1 cm lipoma within the right hepatic lobe. Gallbladder: Unremarkable. Spleen: Normal in size and attenuation. Pancreas: Unremarkable. Adrenal glands: Unremarkable. Kidneys: There is symmetric renal cortical enhancement. The kidneys are normal in size without hydronephrosis. Bowel: There are no transition zones to indicate bowel obstruction. There are no findings to indicate acute diverticulitis. The appendix is not visualized with certainty. There is mild infiltration of the pelvic fat, likely secondary to recent surgery. There is a small amount of intraperitoneal air, likely secondary to recent surgery. There is extraperitoneal air within the anterior abdominal wall. There is extraperitoneal air within the lower pelvis and perirectal region. Again the findings likely relate to recent surgery. Clinical follow-up will be necessary in this regard. Peritoneum: There is trace free fluid in the pelvis likely postsurgical Vasculature: The abdominal aorta is normal in course and caliber. Adenopathy: None. Pelvic viscera: The patient is status post a recent hysterectomy. Infiltration the pelvic fat is likely postsurgical. There are no walled off fluid collections to indicate an abscess. Skeletal structures: No destructive osseous lesions are seen. IMPRESSION: 1. Interval hysterectomy 2. Intraperitoneal air, retroperitoneal air, and abdominal wall air, likely secondary to recent surgery. Clinical follow-up is advocated 3. Small amount of free pelvic fluid. Infiltration the pelvic fat likely secondary to recent surgery. No current evidence of an abscess. 4. No evidence of bowel obstruction. Electronically signed by: Kendell Whitfield M.D. 03/30/2017 11:23 AM Dictated Date/Time: 03/30/2017 11:16 AM
[2017-03-30] MEDS ORDERED: ONDA4TAB10 SL ×2 (11:53)
[2017-03-30] MEDS ORDERED: HYDR-5688 PO ×2 (11:53)
[2017-03-30 12:05] VITALS: BP 110/72; PULSE 68; O2SAT 98
--- NOTE | 2017-03-31 17:22 | EMERGENCY ROOM VISIT NOTE ---
ED Visit Note First contact with patient: 08:33 Chief Complaint: Abdominal pain. History of Present Illness: Ms. Davis is a 41 year-old white female who ambulates into the ED accompanied by her complaining of abdominal pain. Historically patient reports she is 4 days status post open total abdominal hysterectomy. She reports since being home she has been having moderate to severe abdominal pain. She reports last night since being home she had her first bowel movement and had improvement of her pain. She has been taking her prescribed Ultram, ibuprofen and stool softeners without relief of her discomfort. Currently she describes her pain as a pressure-like sensation circumferentially around the abdomen and into the back. She rates her discomfort 10/10. Her pain is nonradiating, but does a pressure-like pain behind. As previously noted a small bowel movement last night decreased her pain but then it returned through the night shoulder. Her pain has been constant and she has not been able to sleep. Associated with her pain she reports she is having chills but has not to find any ashish fevers, she is nauseated but has not vomited, and a small amount of vaginal bleeding. Additionally she reports she is only been able to sleep for 8 hours since being home from the hospital because of her pain. Patient denies sweats, skin eruptions, skin color changes, upper respiratory tract symptoms, shortness of breath, chest pain, diarrhea, rectal bleeding, black/tarry stools, urinary symptoms, hematuria, vaginal bleeding, vaginal discharge. Review of Systems: As noted above in history of present illness. All body systems were reviewed and found to be negative as noted above. Past Medical History: As previously noted. Current Medications: Ultram, ibuprofen and melatonin. Allergies to Medications: Acetaminophen, amoxicillin, chlorhexidine, Augmentin, oxycodone, codeine, oxycodone. Social History: Patient is not employed; she feels safe in her home environment ; she denies tobacco and alcohol use. Physical Examination: Vital Signs: Date Time Temp Pulse Resp B/P (MAP) Pulse Ox O2 Delivery O2 Flow Rate FiO2 03/30/17 12:05 68 16 110/72 98 Room Air 03/30/17 10:59 36.7 73 18 114/64 98 Room Air 03/30/17 09:58 83 16 104/73 100 Room Air 03/30/17 09:17 82 03/30/17 08:26 36.7 102 20 135/92 99 Room Air GENERAL: 41-year-old female in moderate distress due to pain, nontoxic-appearing , afebrile and hemodynamically stable. NEUROLOGICAL: Awake, alert and oriented to person, place and time. Answering questions appropriately and following commands. Normal gait. Good hand eye coordination. SKIN: Warm, dry and pink. No soft tissue eruptions or trauma noted. HEENT: Atraumatic and normocephalic. PERRLA. Sclera white and conjunctiva pink. Oral cavity moist and pink. Pharynx is nonerythematous or edematous. Speech normal. No lymphadenopathy. Trachea midline. No jugular venous distention. BACK: No tenderness over the bony spine. No CVA tenderness. THORAX: Lungs sounds are clear to auscultation and equal bilaterally with symmetrical chest wall. No wheezing, rales or rhonchi. No crepitus, tenderness , subcutaneous air or deformities noted. HEART: Regular rate and rhythm. No gallops, rubs or murmurs are appreciated. ABDOMEN: Flat and soft with diffuse tenderness throughout. I do not appreciate any guarding or rebound. Her surgical incisions are clean dry and intact with no signs of infection. Decreased bowel sounds in all quadrants. No guarding, rigidity or organomegaly. EXTREMITIES: Moves all extremities well on command and with purpose. All distal neurovascular statuses are intact and equal bilaterally. ED Course: Patient is assessed as noted above. Patient's medication list was reviewed. Laboratory Testing: Test 03/30/17 09:10 03/30/17 09:30 Range/Units White Blood Count 7.27 4.8-10.8 K/uL Red Blood Count 4.01 4.2-5.4 M/uL Hemoglobin 11.9 12.0-16.0 g/dL Hematocrit 33.1 37-47 % Mean Corpuscular Volume 82.5 80-100 fL Mean Corpuscular Hemoglobin 29.7 25-34 pg Mean Corpuscular Hemoglobin Concent 36.0 32-36 g/dl Platelet Count 200 130-400 K/uL Mean Platelet Volume 11.1 7.4-10.4 fL Neutrophils (%) (Auto) 73.0 % Lymphocytes (%) (Auto) 16.8 % Monocytes (%) (Auto) 5.5 % Eosinophils (%) (Auto) 4.1 % Basophils (%) (Auto) 0.3 % Neutrophils # (Auto) 5.31 1.4-6.5 K/uL Lymphocytes # (Auto) 1.22 1.2-3.4 K/uL Monocytes # (Auto) 0.40 0.11-0.59 K/uL Eosinophils # (Auto) 0.30 0-0.5 K/uL Basophils # (Auto) 0.02 0-0.2 K/uL RDW Standard Deviation 41.1 36.4-46.3 fL RDW Coefficient of Variation 13.6 11.5-14.5 % Immature Granulocyte % (Auto) 0.3 % Immature Granulocyte # (Auto) 0.02 0.00-0.02 K/uL Sodium Level 137 136-145 mmol/L Potassium Level 3.6 3.5-5.1 mmol/L Chloride Level 104 98-107 mmol/L Carbon Dioxide Level 27 21-32 mmol/L Anion Gap 6.0 3-11 mmol/L Blood Urea Nitrogen 10 7-18 mg/dl Creatinine 0.69 0.60-1.20 mg/dl Est Creatinine Clear Calc Drug Dose 129.5 ml/min Estimated GFR () 125.3 Estimated GFR (Non- 108.1 BUN/Creatinine Ratio 14.4 10-20 Random Glucose 99 70-99 mg/dl Calcium Level 9.0 8.5-10.1 mg/dl Total Bilirubin 1.0 0.2-1 mg/dl Direct Bilirubin 0.3 0-0.2 mg/dl Aspartate Amino Transf (AST/SGOT) 15 15-37 U/L Alanine Aminotransferase (ALT/SGPT) 43 12-78 U/L Alkaline Phosphatase 112 45-117 U/L Total Protein 7.6 6.4-8.2 gm/dl Albumin 3.7 3.4-5.0 gm/dl Lipase 85 73-393 U/L Urine Color YELLOW Urine Appearance CLEAR CLEAR Urine pH 5.5 4.5-7.5 Urine Specific [place] 1.013 1.000-1.030 Urine Protein NEG NEG Urine Glucose (UA) NEG NEG Urine Ketones TRACE NEG Urine Occult Blood 1+ NEG Urine Nitrite NEG NEG Urine Bilirubin NEG NEG Urine Urobilinogen NEG NEG Urine Leukocyte Esterase TRACE NEG Urine WBC (Auto) 1-5 0-5 /hpf Urine RBC (Auto) 5-10 0-4 /hpf Urine Hyaline Casts (Auto) 0 0-5 /lpf Urine Epithelial Cells (Auto) 10-20 0-5 /lpf Urine Bacteria (Auto) NEG NEG Contrast Abdominal/Pelvic CT: Were reviewed by myself and read by the radiologist showing interval hysterectomy, intraperitoneal air, retroperitoneal air and abdominal wall air. A small amount of free pelvic fluid. Infiltration of the pelvic fat with no evidence of abscess. No evidence of bowel obstruction. Patient was hydrated with normal saline, and she received a total of 2 mg of Dilaudid IV for pain, total of 8 mg of Zofran IV. Patient was reassessed multiple times during her stay in the emergency department. Patient's case was reviewed with Dr. Martin; we agreed on diagnostic approach, treatment, disposition and plan per Patient's case was consulted with Dr. Franco, diesel engine i pipe fitter; ; she recommended the patient be discharged home, a small amount of narcotic pain control, encouraged eating and the addition of MiraLAX and return for worsening/ uncontrolled symptoms. Patient was educated about today's findings and instructed on her treatment plan ; she verbalized understanding and agreement with this plan. Clinical Impression: Postoperative abdominal pain. Decision-Making: Initially my differential diagnosis I considered bowel obstruction, perforated viscus, postsurgical infection, postsurgical bleeding, constipation and other causes. Disposition: Patient discharged home in stable condition accompanied by her ; prior to departure she was reassessed and subjectively reported that she was pain-free. Plan: Comfort measures were discussed with the patient including a sliding pain medication scale of ibuprofen, [place] minutes and then [place]; she was given appropriate narcotic precautions and her name was checked to the state database and no red flags were noted. Patient was encouraged to use Colace and follow-up Route diet for the next few days until return to normal symptoms. Patient currently use Zofran 4 mg every 6 hours as needed for nausea/vomiting. Patient was encouraged to stay well-hydrated with increased clear fluids. Patient was encouraged to keep her upcoming appointment with her surgery for definitive care and treatment. Patient was encouraged return ED for worsening/uncontrolled pain, bloody stools , fevers, bloody vomitus, skin eruptions, high/itchy skin or any new/concerning symptoms.
== END 2017-03-30 12:08 | disposition home or self-care (01) ==
LOC: C.EDB 08:24 → C.EDA 12:08
DX: G89.18 Other acute postprocedural pain (principal); Z90.710 Acquired absence of both cervix and uterus; Z79.899 Other long term (current) drug therapy

== ENCOUNTER 2017-03-30 14:57 | Observation (INO) | payer BC ==
[~2017-03-30] VITALS: Ht 177.8 cm; Wt 88.7 kg
[~2017-03-30 14:57] MED LIST changes: +HYDR-5688 PO; +ONDA4TAB10 SL
[2017-03-30] MEDS ORDERED: ONDANSETRON INJ 2 MG/ML 2 ML VIAL IV STA (15:24)
[2017-03-30] MEDS ORDERED: SODIUM CHLORIDE 0.9% 500ML 500 ML IV STA (15:24)
[2017-03-30] MEDS ORDERED: PROMETHAZINE HCL INJ 6.25 MG in SODIUM CHLORIDE 0.9% 50ML 50 ML IV STA (15:24)
[2017-03-30] MEDS ORDERED: MoRPHine SULFATE 4 MG/ML 1 ML CARP\\VIAL IV PRN (15:30)
--- NOTE | 2017-03-30 15:36 | EMERGENCY ROOM VISIT NOTE ---
History Report prepared by Kala: Nic Vegas Under the Supervision of: Dr. Edvin Welch M.D. First contact with patient: 15:16 Chief Complaint: VOMITING Stated Complaint: HERE EARLIER, CANT KEEP ANYTHING DOWN Nursing Triage Summary: see triage note History of Present Illness The patient is a 41 year old female who presents to the Emergency Room with complaints of persistent vomiting that she began to experience today. The patient was in the emergency department earlier today for abdominal pain, bloating, and nausea after a recent incisional hysterectomy. The patient had an incisional hysterectomy performed this past Sunday, 4 days prior to this visit. She has been experiencing significant pain and nausea since this procedure. The patient was discharged with a Zofran prescription after her previous visit today , but continued to vomit constantly for the 90-120 minutes that she was home. She is concerned that she is going to tear her incisional stitches if she continues to vomit to this severity. She has also been constipated lately and is taking MiraLax. Her hysterectomy was done by Dr. Chaudhari. Source of History: patient Onset: Today Position: other (GI) Quality: other (Vomiting ) Timing: constant Associated Symptoms: + abdominal pain Review of Systems See HPI for pertinent positives & negatives. A total of 10 systems reviewed and were otherwise negative. Past Medical & Surgical Medical Problems: (1) Dermoid cyst (2) Fibroid, uterine (3) Nausea and vomiting (4) Pelvic pain (5) Rotator cuff injury Surgical Problems: (1) Post-operative state (2) Postoperative state Family History No pertinent family histories discussed. Social History Smoking Status: Never Smoker Marital Status: Housing Status: lives with roommate Current/Historical Medications Scheduled Ibuprofen (Advil), 600 MG PO PRN Melatonin (Melatonin Maximum Strengt), 5 MG PO HS Ondasetron Odt (Zofran Odt), 4 MG SL Q6H Scheduled PRN Hydrocodone/Acetaminophen 5MG/325MG ([place] 5MG/325MG), 1 TABLET PO Q6 PRN for Pain Tramadol (Ultram), 50 MG PO Q6H PRN for RN Allergies Coded Allergies: Acetaminophen (Unverified Allergy, Unknown, HIVES, 03/30/17) Amoxicillin (Verified Allergy, Unknown, ANAPHYLAXIS, 03/30/17) Banana (Verified Allergy, Unknown, ANAPHYLAXIS, 03/30/17) Chlorhexidine (Verified Allergy, Unknown, red;itchy;burning skin, 03/30/17) Clavulanic Acid (Verified Allergy, Unknown, ANAPHYLAXIS, 03/30/17) Codeine (Verified Allergy, Unknown, NAUSEA, 03/30/17) Dairy (Verified Allergy, Unknown, WHOLE MILK-GI UPSET VOMITING-TONGUE SWELLS, 03/30/17) Egg (Verified Allergy, Unknown, ANAPHYLAXIS, 03/30/17) Oxycodone (Unverified Allergy, Unknown, HIVES, 03/30/17) Soy Protein (Verified Allergy, Unknown, ANAPHYLAXIS, 03/30/17) Physical Exam Vital Signs Date Time Temp Pulse Resp B/P (MAP) Pulse Ox O2 Delivery O2 Flow Rate FiO2 03/30/17 17:24 36.3 72 16 115/77 97 03/30/17 17:06 72 16 115/77 97 Room Air 03/30/17 16:27 72 16 97 03/30/17 16:18 73 20 112/74 96 Room Air 03/30/17 16:17 68 03/30/17 16:16 112/74 03/30/17 15:11 36.3 79 20 127/89 99 Room Air Physical Exam GENERAL: Patient is in no acute distress. HEENT: No acute trauma, normocephalic atraumatic, mucous membranes moist, no nasal congestion, no scleral icterus. NECK: No stridor, no adenopathy, no meningismus, trachea is midline. LUNGS: Clear to auscultation bilaterally, no wheeze, no rhonchi, breath sounds equal. HEART: Without murmurs gallops or rubs, regular rate and rhythm. ABDOMEN: The abdomen is somewhat bloated and diffusely tender but there is no peritonitis. Bowel sounds are positive. The hysterectomy incision is healing and without signs of infection. EXTREMITIES: No cyanosis or edema, full range of motion of all the joints without pain or difficulty, no signs for acute trauma. NEUROLOGIC: Oriented x 3, no acute motor or sensory deficits, no focal weakness. SKIN: No rash, no jaundice, no diaphoresis. Medical Decision & Procedures Medications Administered Medications (Trade) Dose Ordered Sig/Daya Route Start Time Stop Time Status Last Admin Dose Admin Sodium Chloride 500 ml @ 999 mls/hr Q31M STAT IV 03/30/17 15:24 03/30/17 15:54 DC 03/30/17 15:35 999 MLS/HR Morphine Sulfate (MoRPHine SULFATE INJ) 4 mg Q15M PRN IV 03/30/17 15:30 04/13/17 15:29 03/30/17 15:41 4 MG Ondansetron HCl (Zofran Inj) 4 mg NOW STAT IV 03/30/17 15:24 03/30/17 15:31 DC 03/30/17 15:40 4 MG Promethazine HCl 6.25 mg/Sodium Chloride 50.25 ml @ 204 mls/hr NOW STAT IV 03/30/17 15:24 03/30/17 15:38 DC 03/30/17 15:59 204 MLS/HR Lactated Ringer's 1,000 ml @ 125 mls/hr Q8H IV 03/30/17 16:34 04/29/17 16:33 03/30/17 17:06 125 MLS/HR ED Course 1518: The patient was evaluated in room B11B. A complete history and physical exam was performed. 1524: Ordered Promethazine HCl 50.25 mL @ 204 mL/hr IV, Zofran 4 mg IV, Sodium Chloride 500 mL @ 999 mL/hr IV. 1526: I discussed the case with Dr. Watson LARA. She will come to the department to observe the patient for possible admission to the hospital. 1530: Ordered Morphine Sulfate 4 mg IV. Medical Decision Differential Diagnosis includes; dehydration, bowel obstruction, failed outpatient treatment, ileus, post surgical vomiting. The patient presents after being home just a few hours, she was in the ED earlier. She has not been able to control her vomiting despite Zofran. She recently underwent a hysterectomy-- 4 days ago. Reviewing the patient's workup from earlier today, there was no bowel obstruction or abscess seen by CT. No leukocytosis, no concerning anemia. No significant electrolyte abnormality, kidney failure, hepatitis or pancreatitis. Urinalysis did not show infection. Currently, on exam, the patient's abdomen is somewhat distended and mildly tender, no peritonitis, bowel sounds are positive. The patient is failing outpatient treatment. I do think a hospital stay for symptom control and hydration is warranted. I spoke to the patient and case management. The application packaging consultant [employer] SALES SUPERVISOR doctor was consulted. Consults Time Called: 1521 Consulting Physician: Dr. Watson LARA Returned Call: [phone] I discussed the case with Dr. Watson LARA. She will come to the department to observe the patient for possible admission to the hospital. Impression Primary Impression: Vomiting Additional Impressions: Failure of outpatient treatment Status post hysterectomy Scribe Attestation The scribe's documentation has been prepared under my direction and personally reviewed by me in its entirety. I confirm that the note above accurately reflects all work, treatment, procedures, and medical decision making performed by me. Departure Information Dispostion Being Evaluated By Surgeon Referrals No Doctor, Assigned (PCP) Patient Instructions My [facility] Problem Qualifiers
[2017-03-30] MEDS ORDERED: MoRPHine SULFATE 2 MG/ML CARP IV PRN (16:45)
[2017-03-30] MEDS ORDERED: ONDANSETRON INJ 2 MG/ML 2 ML VIAL IV PRN (16:45)
[2017-03-30] MEDS ORDERED: IV FLUIDS COMPLETED PRN (16:45)
[2017-03-30] MEDS: LACTATED RINGER'S 1000ML 1,000 ML IV SCH (17:06)
[2017-03-30] MEDS: IBUPROFEN 600 MG TAB PO PRN ×2 (17:58→23:34)
[2017-03-30] MEDS: ZOLPIDEM TARTRATE 5 MG TAB PO PRN ×2 (17:58→20:43)
[2017-03-30 18:05] VITALS: BP 133/80; PULSE 71; TEMP 37; O2SAT 97; Ht 177.8 cm; Wt 88.7 kg
--- NOTE | 2017-03-30 18:10 | HISTORY & PHYSICAL EXAMINATION ---
DATE OF ADMISSION: 03/30/2017 CHIEF COMPLAINT: Nausea and vomiting. HISTORY OF PRESENT ILLNESS: A 41-year-old 3, para 3 who presents to the Emergency Room for the second time, now complaining of nausea and vomiting. The patient has recently undergone total abdominal hysterectomy with removal of a large fibroid that was situated in the right mid to upper quadrant as well as bilateral salpingectomies. This surgery was done on Sunday. She is postop day #4. She was discharged to home on her postop day #1. At that time, she was tolerating a regular diet, voiding spontaneously, ambulating and was passing small amounts of gas. She notes that her postoperative course since that time has been eventful with gas pain. She had episodes of times of severe pain and has had poor sleep. She has had gas pains and has been able to tolerate food and liquids and has done a lot of walking. She has been voiding fine without any difficulty. She denies any fevers. She was improved yesterday evening after she used a suppository and passed a small bowel movement as well as gas. She spent the evening with her family watching TV and feeling quite well. Unfortunately, overnight she worsened. This morning, she woke up in severe abdominal pain. She called the on-call physician who advised her to come to the Emergency Room. She was evaluated in the Emergency Room earlier today and ultimately discharged to home. At that time, she underwent evaluation to include a CBC with a normal white count of 7.27 and hemoglobin 11.9. Chemistries that were normal. Urine that did have trace ketones and occult blood and trace leukocyte esterase, but no bacteria. She also underwent imaging studies that showed typical postsurgical changes after interval hysterectomy and no evidence of bowel obstruction. There was a small amount of free pelvic fluid and infiltration of the pelvic fat, likely secondary to the recent surgery with no evidence of abscess. She notes on the way home from that Emergency Room visit, she began vomiting. It persisted when she came home. For that reason, she came back to the Emergency Room. I was called by Dr. Welch who evaluated her in the Emergency Room for this visit. Given that she could not keep anything down, the decision was made to bring her into the hospital for observation. PAST MEDICAL HISTORY: depression with anxiety, history of an ovarian cyst that was a dermoid on the left that was removed; history of leiomyoma and pelvic pain, managed with surgery on Sunday. PAST SURGICAL HISTORY: Carpal tunnel surgery, hand surgery, knee surgery, history laparoscopy with dermoid removal, rotator cuff repair, wisdom tooth extraction and recent total abdominal hysterectomy and bilateral salpingectomies and removal of large fibroid. FAMILY HISTORY: Father with diabetes. SOCIAL HISTORY: Nonsmoker, no alcohol use. . MEDICATIONS: Motrin, tramadol, Zofran. ALLERGIES: AUGMENTIN, CODEINE, AMOXICILLIN, EGGS, DAIRY, CHLORHEXIDINE, BANANAS. REVIEW OF SYSTEMS: Per the HPI, she denies any urinary symptoms. She notes a muscular twitching pain in the right mid back and right upper quadrant that can take her breath away. It does not seem that her significant pain is incisional. She feels that the pain that she is feeling right now is different from the pain prior to her surgery. She denies any vaginal discharge. She is reporting extremely poor sleep and the remainder is per the HPI and otherwise negative. PHYSICAL EXAMINATION: VITAL SIGNS: Temp 36.3, pulse 72, respirations 16, blood pressure 115/77; her pulse ox is 97% on room air. GENERAL: She is an overall well-appearing female in the Emergency Room bed, lying supine. She has intermittent twitching of her face related to what she says is a sudden acute sharp stabbing pain. ABDOMEN: Soft, mild appropriate tenderness incisionally and suprapubically. Incision is bruised, but otherwise intact. She has no CVA tenderness. She has no rebound or guarding. EXTREMITIES: Nontender. ASSESSMENT: 1. Nausea and vomiting. 2. Postoperative state. PLAN: I discussed with the patient that is unclear to me the cause of her nausea and vomiting; however, due to her return to the Emergency Room, I feel prudent to admit her for IV fluids and bowel rest. I am wondering if the twitching pain that she is feeling is related to the prior presence of the mass in the right mid quadrant and so we will try some warm moist heat to alleviate any musculoskeletal component of the pain. She has a lot of pain medication sensitivities and therefore we will try to use morphine IV, oxycodone p.o. and Motrin p.o. to help her pain management. Additionally, I think she would benefit from some sleep and so we have ordered Ambien as well as Phenergan IV that could aide in drowsiness and sleep. She is advised to utilize these things. We would recommend keeping her nothing to eat or drink by mouth other than sips with medications. We will follow her closely and determine if further studies are indicated based on her response to our current plan for bowel rest. She verbalized understanding of this plan and is in agreement. FITO
[2017-03-30 19:50] VITALS: BP 124/81; PULSE 80; TEMP 36.9; O2SAT 100
[2017-03-30] MEDS: OXYCODONE HCL IR 5 MG TAB (IMMEDIATE RELEASE) PO PRN (20:44)
[2017-03-30 23:20] VITALS: BP 108/75; PULSE 90; TEMP 36.5
[2017-03-31] MEDS: OXYCODONE HCL IR 5 MG TAB (IMMEDIATE RELEASE) PO PRN ×3 (00:46→08:15)
[2017-03-31] MEDS: LACTATED RINGER'S 1000ML 1,000 ML IV SCH (01:23)
[2017-03-31 03:55] VITALS: BP 115/61; PULSE 85; TEMP 36.3
--- NOTE | 2017-03-31 06:34 | OB/GYN Progress Note ---
VIBRATOR OPERATOR Progress Note Date of Service Mar 31, 2017. Subjective conversation w/ patient, physical exam Ambulation: ambulating normally Voiding: no voiding problems Passing Gas: No (only small amounts - reports does not really provide relief) Diet Tolerance: NPO Pain: much improved, but still feels "abdominal pressure" Review of Systems Constitutional: No problem reported Respiratory: No problem reported Cardiac: No problem reported Abdomen: + problem reported (abdominal pressure) Female : No problem reported Objective Vital Signs Date Time Temp Pulse Resp B/P (MAP) Pulse Ox O2 Delivery O2 Flow Rate FiO2 03/31/17 03:55 36.3 85 18 115/61 (79) Room Air 03/30/17 23:20 36.5 90 18 108/75 (86) Room Air 03/30/17 23:20 Room Air 03/30/17 19:50 36.9 80 18 124/81 (95) 100 Room Air 03/30/17 18:05 37.0 71 18 133/80 97 Room Air 03/30/17 17:24 36.3 72 16 115/77 97 03/30/17 17:06 72 16 115/77 97 Room Air 03/30/17 16:27 72 16 97 03/30/17 16:18 73 20 112/74 96 Room Air 03/30/17 16:17 68 03/30/17 16:16 112/74 03/30/17 15:11 36.3 79 20 127/89 99 Room Air Physical Exam General Appearance: WELL-APPEARING, NO APPARENT DISTRESS Respiratory/Chest: no respiratory distress Cardiovascular: regular rate, rhythm Abdomen: normal bowel sounds, non tender, soft Incision Description: Clean, Dry & Intact Extremities: normal inspection, + pertinent finding (SCDs in place) Assessment and Plan Post-Op Day Number: 5 Continue Routine Care: POD#5 s/p PATRICK, readmitted yesterday with abdominal pain, pressure, nausea/ vomiting. Most recent episode of vomiting was last night in ER prior to admission. Overnight, was NPO and got some rest. Feels like abdominal pain has improved - however, still reports abdominal pressure. Feels like she needs to pass gas. Has passed some small amounts of gas, but feels like "it wasn't enough." Abdomen is not distended. +bowel sounds in all 4 quadrants. Discussed with patient that I recommend ambulation to increase bowel function, when she is passing gas will recommend slowly increase diet.
--- NOTE | 2017-03-31 06:36 | Discharge Instructions ---
Discharge Instructions Date of Service Mar 31, 2017. Admission Reason for Admission: Nausea And Vomiting Discharge Discharge Diagnosis / Problem: postoperative ileus Discharge Goals Goal(s): Routine recovery after surgery Activity Recommendations Activity Limitations: per Instructions/Follow-up section . Instructions / Follow-Up Instructions / Follow-Up POST OPERATIVE: BOWEL FUNCTION/MEDICATIONS: 1. Constipation pain and discomfort are the most common complaints 5-7 days after surgery. Points 2-6 address the things that can help. 2. Chewing gum can help stimulate the gut and help improve digestion and motility. 3. Milk of Magnesia 1-2 times per day until return of bowel function. 4. Colace is a stool softener that helps. Taking this 2-3 times per day until bowel function returns to normal is highly recommended. 5. Dulcolax is a laxative that may be used if several days have passed without a bowel movement. Alternatively Miralax may be used daily instead. 6. Drink plenty of fluids as this will also reduce constipation. 7. Narcotic pain medications will be prescribed by your physician. They are safe to use and we encourage you to use them. If you are not allergic, ibuprofen will also be prescribed. Many patients will be able to transition off of the narcotic medications to ibuprofen by postoperative day 3. ACTIVITY RECOMMENDATIONS: 1. Get plenty of rest and listen to your body. If you are tired, take a nap. 2. You may shower, but do not take a tub bath until you see your doctor at the 2 week post operative visit. 3. Absolutely NO intercourse and nothing in the vagina until you are examined by your doctor at the 6 week visit. At that visit it will be determined when such activities can be resumed. This can range from 6-12 weeks after your surgery depending on healing time. 4. The main physical activity in the first week should be walking. By the second week you can slowly increase activity. There are no limits on walking up and down stairs. 5. Do not lift more than 5-10 lbs for 4 weeks. Remember the "one-handed rule", i.e. if you can lift something with only one hand it's likely okay. 6. Minimize black leather buffer like vacuuming and exercising for 4 weeks. "Overdoing it" can lead to incisions not healing, pain and vaginal bleeding , so again, listen to your body. 7. Driving can be resumed when you feel able. Do not drive within 24 hours of taking a narcotic medication. EXPECTATIONS: 1. Vaginal spotting, bleeding and discharge are common after surgery. There may even be an odor to the discharge which is often related to sutures used in the vagina. If you experience heavy vaginal bleeding, call the office number day or night [phone]. 2. Bladder discomfort is common after surgery from the catheter. This usually resolves in 1-2 weeks. 3. By the end of the 3rd or 4th week you should be feeling much better. It may take up to 6 weeks for your energy levels to return to normal. 4. Narcotic medications have side effects such as: dizziness, headache, nausea and/or vomiting. If you suspect your pain medication is causing problems, call our office and we may be able to prescribe an alternate medication. 5. The skin incisions are often covered with a liquid bandage. This will gradually peel off over time. CALL THE OFFICE IF YOU HAVE ANY OF THE FOLLOWIN. Temperature of 101 degrees or higher. 2. Severe abdominal or pelvic pain not relieved by pain medication. 3. Persistent nausea or vomiting. 4. Increased pain with urination or difficulty urinating. 5. Bright red bleeding that soaks more than 1 pad per hour. CONTACT PHONE NUMBERS: Main Office: [phone] Surgical Nurse: [phone] extension [phone] Avoid all tobacco products. If you need help to stop smoking, call [place]'s FREE QUITLINE at . This is a free call. Current Hospital Diet Patient's current hospital diet: Discharge Diet Recommended Diet: Regular Diet Pending Studies Studies pending at discharge: no Medical Emergencies . Who to Call and When: Medical Emergencies: If at any time you feel your situation is an emergency, please call 911 immediately. . Non-Emergent Contact Non-Emergency issues call your: Primary Care Provider, Reinforcement Maker . . "Provider Documentation" section prepared by Eliza Brand. . VTE Core Measure Inpt VTE Proph given/why not?: SCD's
[2017-03-31] MEDS: IBUPROFEN 600 MG TAB PO PRN ×4 (06:39→21:28)
[2017-03-31 07:20] VITALS: BP 105/68; PULSE 77; TEMP 36.5; O2SAT 98
[2017-03-31] MEDS: SIMETHICONE 80 MG CHEW PO PRN ×2 (08:14→21:28)
[2017-03-31] MEDS: MAGNESIUM HYDROXIDE SUSP 30 ML UDC PO PRN ×2 (08:15→23:36)
--- NOTE | 2017-03-31 09:17 | Progress Note ---
Progress Note Date of Service Mar 31, 2017. Progress Note After my morning rounds, patient got out of bed to use the bathroom and ambulate a bit. She then felt worse, with complaints of increased abdominal pressure and nausea. Will rx simethicone and milk of mag in an attempt to help patient pass more flatus. I think this will help to improve her discomfort.
[2017-03-31] MEDS ORDERED: NURSING VERBAL MED ORDER ONE (09:30)
[2017-03-31] MEDS ORDERED: GLYCERIN ADULT 1 EA SUPP PR ONE (10:00)
[2017-03-31 12:30] VITALS: BP 128/84; PULSE 78; TEMP 36.5; O2SAT 98
[2017-03-31 16:20] VITALS: BP 114/78; PULSE 79; TEMP 37
--- NOTE | 2017-03-31 18:53 | Progress Note ---
Progress Note Date of Service Mar 31, 2017. Progress Note pt seen ambulating in halls earlier today. she noted alot of relief from glycerine suppository with bm's this am. advised to walk and make sure large amount of flatus passing and then will consider clears. called by nursing with "alot of flatus" and requesting po. given clears in mid afternoon, pavel well and then at dinner requested food and continued to have large flatus and given regular diet. pt and spouse well aware that she should only report as positive flatus if it is significant, ie. she had told us at time of d/c last time that she passed gas but afterward when had "gas pain" reported she just "pushed some out." This time i want to be sure she has excellent return of bowel function as demonstrated by sig flatus and then can consider going home. she never had demonstrated bowel obstruction but had constipation, nausea and vomiting and 2 visits to ER yesterday. Will see how she tolerated her dinner and go from there.
[2017-03-31 19:50] VITALS: BP 116/77; PULSE 77; TEMP 36.8
[2017-03-31 23:15] VITALS: BP 125/85; PULSE 88; TEMP 36.5; O2SAT 96
[2017-04-01] MEDS: ZOLPIDEM TARTRATE 5 MG TAB PO PRN (02:13)
[2017-04-01] MEDS: SIMETHICONE 80 MG CHEW PO PRN ×2 (02:13→09:04)
[2017-04-01 06:00] VITALS: BP 109/60; PULSE 91; TEMP 36.9; O2SAT 99
[2017-04-01 08:30] VITALS: BP 113/74; PULSE 76; TEMP 36.8
[2017-04-01] MEDS: IBUPROFEN 600 MG TAB PO PRN (08:36)
--- NOTE | 2017-04-01 09:41 | Progress Note ---
Progress Note Date of Service Apr 01, 2017. Progress Note s/ pt doing well. passing large amount of gas and having bm's. no n/v. voiding well. controlling pain with motrin. ambulating without problem o/ af vss cor rrr, lungs ctab, abd soft nabs, nt, incision c/d/i with bruising. ext nt calves a/ hd #2, constipation, n/v, postop state p/ encouraged pt to be patient in the healing process and not to panic with every ache and pain. now that passing large amounts of gas feel reassured that she has normal return to bowel function. rec colace 100mg daily to start to keep bowels soft and regular. she is not going to use narcotic anymore given that she really does not have incisional pain or issues. she is quite anxious as a person so tried to have her recognize that and not panic if has gas pain again and expect some level of gas sometimes related to our foods, or IBS or our underlying bowel function. I see no fever or s/sx of complication from surgery. She may have had slow return to bowel function but really normal findings now. she will go home. we will see her in 1-2 wks.
[2017-04-01 10:35] VITALS: BP 113/74; PULSE 76; TEMP 36.8; O2SAT 99
--- NOTE | 2017-04-01 10:36 | DISCHARGE SUMMARY ---
ADMISSION DIAGNOSES: 1. Constipation. 2. Nausea and vomiting. 3. Postoperative state. DISCHARGE DIAGNOSES: Same. PROCEDURES: 1. IV FLUIDS. 2. Bowel rest. 3. Pain management. BRIEF HISTORY AND HOSPITAL COURSE: A 41-year-old 3, para 3 who presented to the Emergency Room for the second time on the day of her admission with nausea and vomiting. She had undergone an evaluation earlier that day after having a total abdominal hysterectomy approximately 4 days prior with removal of a large fibroid. At her initial presentation to the ER she complained of gas pain, abdominal pain and constipation. There was no evidence of bowel obstruction or any other significant issues and she was sent home. On her way home from the Emergency Department where she had had a CT scan, she ended up vomiting in the CT scan material. She then persisted with some vomiting at home and therefore came back to the Emergency Department and I opted to keep her overnight. She received IV fluids as well as bowel rest and later on her hospital day #2, she started to pass large amounts of gas. She was advanced in her diet gradually from liquids to solid food. She has episodes of waves of gas pain that persisted and multiple bowel movements after glycerin suppository use as well. On her hospital day #3, she continued to do well with passing large amounts of gas, tolerating regular food. She was voiding spontaneously and ambulating as well. She opted to use Motrin only for her pain control as she does not want to get constipated further with narcotics. She was having multiple bowel movements on the day of her discharge. She was stable for discharge to home. She was instructed to follow up in 1-2 weeks' time. She was given advice to use stool softener at least 100 mg of Colace daily and increase that as needed. FITO
== END 2017-04-01 10:35 | disposition home or self-care (01) ==
LOC: C.EDB 14:58 → C.OBG 16:34 → ENRESERV 17:00
PROVIDERS: ADMIT Obstetrics & Gynecology; ATTEND Obstetrics & Gynecology
DX: K59.00 Constipation, unspecified (principal); R11.10 Vomiting, unspecified; Z90.710 Acquired absence of both cervix and uterus

== ENCOUNTER 2023-09-28 16:35 | Inpatient (IN) ==
[2023-09-28] MEDS: MoRPHine SULFATE 10 MG/ML CARP/VIAL IM STA (17:21)
[2023-09-28] MEDS: ONDANSETRON 4 MG OD TAB PO STA (17:21)
--- NOTE | 2023-09-28 18:09 | XRay Report ---
XR ankle RT min 3V routine CLINICAL HISTORY: R ankle injury COMPARISON STUDY: None. FINDINGS: Soft tissue swelling within the right ankle. There is nondisplaced fracture at the posterio r malleolus of the distal tibia. There are plantar and posterior calcaneal spurs. There is a displace d fracture within the distal shaft of the right fibula. This demonstrates up to 9 mm of lateral displ acement. This also demonstrates mild posterior angulation. Mild widening of the anterior medial ankle joint is also noted. IMPRESSION: Right ankle fractures as described above with widening of the anteromedial ankle joint. ACT 112: Negative or not required by law. Electronically signed by: Catarino Emmanuel M.D. 09/28/2023 6:08 PM
[2023-09-28] MEDS: HYDROmorphone INJ 1 MG/ML SYRINGE IM STA (18:49)
--- NOTE | 2023-09-28 19:26 | Emergency Department Note ---
ED Provider Note History of Present Illness Chief Complaint: Ankle Pain Stated Complaint: FALL, ANKLE RT HURT Time Seen by Provider: 09/28/23 17:09 48-year-old female who presents the emergency department with her for evaluation of an injury to her right ankle. The patient reports that she was gardening outside, wearing flip-flops, and slipped on wet grass on an embankment. The patient reports twisting the ankle and feeling a popping sensation. The patient reports notable pain, and is unable to bear weight without significant discomfort. She denies head injury, neck pain, back pain or other injuries from her fall, and rates her discomfort a 10 out of 10. The patient denies any prior history of right ankle injuries. Home Medications Medication Instructions Recorded Confirmed Type clonazepam 1 mg tablet (Klonopin) 1 mg PO DAILY PRN Anxiety 09/28/23 09/28/23 History fluticasone propionate 50 1 spray intranasal DAILY PRN 09/28/23 09/28/23 History mcg/actuation nasal Congestion spray,suspension hydroxyzine HCl 50 mg tablet 50 mg PO BID 09/28/23 09/28/23 History loratadine 10 mg tablet (Claritin) 10 mg PO DAILY PRN Congestion 09/28/23 09/28/23 History multivitamin 1 tab PO DAILY 09/28/23 09/28/23 History sertraline 100 mg tablet 150 mg PO DAILY 09/28/23 09/28/23 History trazodone 150 mg tablet 150 mg PO HS 09/28/23 09/28/23 History Allergies Allergy/AdvReac Type Severity Reaction Status Date / Time amoxicillin Allergy Severe ANAPHYLAXIS Verified 09/28/23 19:53 banana Allergy Severe ANAPHYLAXIS Verified 09/28/23 19:53 clavulanic acid Allergy Severe ANAPHYLAXIS Verified 09/28/23 19:53 egg Allergy Severe ANAPHYLAXIS Verified 09/28/23 19:53 milk Allergy Severe WHOLE Verified 09/28/23 19:53 MILK-GI UPSET VOMITING-TONGUE SWELLS soy Allergy Severe ANAPHYLAXIS Verified 09/28/23 19:53 chlorhexidine Allergy Intermediate red;itchy;burning Verified 09/28/23 19:53 skin Past Med/Surg History Problem List (Updated 09/28/23 @ 19:26 by Jose Manuel Shelton) Fall from slipping on slippery surface (Acute) Closed fracture of posterior malleolus of right tibia (Acute) Closed fracture of distal end of right fibula (Acute) URI (upper respiratory infection) Lower back pain Urinary hesitancy Chronic gastritis Abdominal pain, epigastric Encounter for pre-operative examination Uterine fibroid (Acute) Right flank pain (Acute) Postoperative state Post-operative state Pelvic pain Nausea and vomiting Fibroid, uterine Medical History Segmental and somatic dysfunction of thoracic region Segmental and somatic dysfunction of rib cage Segmental and somatic dysfunction of abdomen and other regions Cranial somatic dysfunction Cervical somatic dysfunction History of anesthesia reaction difficulty waking Nausea and vomiting after administration of anesthetic agent severe vomiting GERD (gastroesophageal reflux disease) Anxiety Depression Uterine fibroid Asthma inhaler prn Surgical History History of right knee surgery History of removal of cyst dermoid removal off right side History of open reduction and internal fixation (ORIF) procedure right thumb--hardware removed History of carpal tunnel surgery of right wrist History of repair of right rotator cuff History of wisdom tooth extraction Hx of hysterectomy with bilateral salphingectomy Family History Father Family history of diabetes mellitus Myocardial infarction Denies family history of Ovarian cancer Prostate cancer Breast cancer Colorectal cancer Social History Smoking Status: Never smoker Second Hand Exposure: No; Do You Dip or Chew Tobacco: No; Hx Alcohol Use: No Hx Substance Use: No Preferred Language: Slovak Communication Ability: Effective Visual Impairment: No Limitations Hearing Ability: Normal Aquaculture Director Required: No Beliefs That Will Affect Care: None marital status: Current Living Situation: Spouse and Family Current Living Situation Comment: Lives with , 2 kids current occupational status: employed Feels Safe at Home: Yes Childhood Exposure to Second-Hand Smoke: No Diet: other Diet Comment: nutri system Dental Care, Regularly: Yes Physical Activity Frequency: Daily Seatbelt Use: always Sunscreen Use: Yes Assistive Devices: Glasses Physical Exam Vital Signs Vital Signs - 24 hr 09/28/23 16:58 09/28/23 18:44 Temperature 36.6 C Temperature Source Temporal Artery Scan Pulse Rate 69 Pulse Rate [Finger] 64 Respiratory Rate 20 18 Respiratory Effort / Characteristics Non-Labored Spontaneous Non-Labored Spontaneous Respiratory Depth Normal Normal Respiratory Pattern Regular Regular Blood Pressure 108/71 Blood Pressure [Right Arm] 105/81 Blood Pressure Mean 83 Blood Pressure Mean [Right Arm] 89 Blood Pressure Position Sitting Pulse Oximetry 98 99 Oxygen Delivery Method Room Air Room Air Sepsis Recent Fever Within 48 Hours No Sepsis New/Unexplained Change in Mental Status No Sepsis Action Taken by Nursing No Action Required CONSTITUTIONAL: Healthy and well nourished. Patient appears in moderately severe discomfort. HEENT: Normocephalic, atraumatic. NECK: Full active range of motion without discomfort. MUSCULOSKELETAL: Examination of the right lower extremity shows mild edema without any obvious deformities or skin tenting. The patient does have small abrasions to the foot region. No tenderness to palpation of the proximal fibula or knee region. Pedal pulses are intact. INTEGUMENTARY: No rash or other significant dermatologic conditions noted. HEMATOLOGIC: No ecchymosis or petechiae. PSYCHIATRIC: Positive affect. NEUROLOGIC: Right lower extremity is sensory intact. Course Course Patient history and physical exam were performed. Nurses notes were reviewed. Vital signs were reviewed. The patient was initially administered IM morphine and Zofran ODT. X-rays of the right ankle confirmed a displaced distal fibula fracture, posterior malleolus fracture, as well as medial ankle mortise widening. X-rays were reviewed with the patient. The patient did request something additional for pain, and was administered IM Dilaudid. At this point, I reached out to Dr. Steve, orthopedic surgeon on-call. Given the fracture site, and possibility of not tolerating crutches well, he did agree to admit the patient for operative management tomorrow. The patient was in agreement with this plan. IV access was established, and labs were ordered and reviewed by me with, without any concerning findings. An ECG was also performed, showing a sinus bradycardia without any other concerning ST elevation or ischemic changes. A posterior and ankle stirrup Ortho-Glass splint was applied for support. The patient was happy with plan of care, and voiced understanding of all discharge instructions. Administered Medications Discontinued Medications Hydromorphone HCl (Hydromorphone Inj 1 Mg/Ml Syringe) 1 mg IM NOW STA Stop: 09/28/23 18:46 Last Admin: 09/28/23 18:49 Dose: 1 mg Documented By: LENKA Morphine Sulfate (Morphine Sulfate 10 Mg/Ml Carp/Vial) 6 mg IM NOW STA Stop: 09/28/23 17:15 Last Admin: 09/28/23 17:21 Dose: 6 mg Documented By: MANAN Ondansetron HCl (Ondansetron 4 Mg Od Tab) 4 mg PO NOW STA Stop: 09/28/23 17:15 Last Admin: 09/28/23 17:21 Dose: 4 mg Documented By: MANAN Medical Decision Making Medical Records Attestation: I reviewed the patient's medical records. Home Medications was personally reviewed by me Laboratory Data Attestation: I reviewed the patient's lab results. 09/28/23 19:32 09/28/23 19:32 Imaging Data Attestation: I personally reviewed and interpreted this imaging study as follows: My Impression: My interpretation of right ankle x-ray shows a distal fibular fracture, posterior malleolus fracture and medial ankle mortise widening. Radiologist report was also reviewed with concurrence. Radiologist's Impression: Ankle X-Ray 09/28/23 17:15 XR ankle RT min 3V routine CLINICAL HISTORY: R ankle injury COMPARISON STUDY: None. FINDINGS: Soft tissue swelling within the right ankle. There is nondisplaced fracture at the posterior malleolus of the distal tibia. There are plantar and posterior calcaneal spurs. There is a displaced fracture within the distal shaft of the right fibula. This demonstrates up to 9 mm of lateral displacement. This also demonstrates mild posterior angulation. Mild widening of the anterior medial ankle joint is also noted. IMPRESSION: Right ankle fractures as described above with widening of the anteromedial ankle joint. ACT 112: Negative or not required by law. Electronically signed by: Catarino Emmanuel M.D. 09/28/2023 6:08 PM ECG Data Attestation: I personally reviewed and interpreted this ECG as follows: Indication: + other (Preop) Rate (beats per minute): 52 Rhythm: + sinus bradycardia ECG Intervals/blocks: + Normal QRS, + Normal QT and + Normal UT ECG ST segments: + Normal ST segments Comparison ECG Date: from (09/25/2020) Change: no significant change MDM Narrative Definitive Fracture Care: Right distal fibula fracture, posterior malleolus fracture and medial ankle mortise widening. The fracture is closed with moderate displacement. Plan: immobilization and operative management tomorrow by Dr. Jen phillips. Splint Care: After the Orthoglass splint was applied by the ED engineering laboratory technician, I examined the splint and confirmed proper application/placement/position. Neurovascular status was intact both proximal and distal to the splinted area. See ED Course section for further details of today's visit. The patient has sustained a right ankle fracture from a slip and fall on wet grass. X-rays show a distal fibular fracture, posterior malleolus fracture and ankle medial mortise widening. The case was discussed with Dr. Steve, who will be admitting the patient for operative management tomorrow. Please see his dictation for further treatment and final disposition. Impression Closed fracture of distal end of right fibula, Closed fracture of posterior malleolus of right tibia, Fall from slipping on slippery surface Discharge Plan Visit Data Chief Complaint: Ankle Pain Stated Complaint: FALL, ANKLE RT HURT ED Provider: Micaela Hassan ED Midlevel Provider: Jose Manuel Shelton Discharge Problem: Closed fracture of distal end of right fibula, Closed fracture of posterior malleolus of right tibia, Fall from slipping on slippery surface Forms Stand Alone Forms: [facility] Prescriptions Prescriptions: No Action sertraline 100 mg tablet 150 mg PO DAILY clonazepam [Klonopin] 1 mg tablet 1 mg PO DAILY PRN (Reason: Anxiety) hydroxyzine HCl 50 mg tablet 50 mg PO BID trazodone 150 mg tablet 150 mg PO HS multivitamin Tablet 1 tab PO DAILY fluticasone propionate [Flonase] 50 mcg/actuation [place],Suspension 1 spray INTRANASAL DAILY PRN (Reason: Congestion) Rx Instructions: administer into each nostril loratadine [Claritin] 10 mg Tablet 10 mg PO DAILY PRN (Reason: Congestion) Referrals Referrals: Ray Baig DO [Primary Care Provider] - Discharge Problem: Closed fracture of distal end of right fibula Qualifiers: Encounter type: initial encounter Fracture morphology: other fracture Qualified Code(s): S82.831A - Other fracture of upper and lower end of right fibula, initial encounter for closed fracture Closed fracture of posterior malleolus of right tibia Qualifiers: Encounter type: initial encounter Qualified Code(s): S82.391A - Other fracture of lower end of right tibia, initial encounter for closed fracture Fall from slipping on slippery surface Qualifiers: Encounter type: initial encounter Qualified Code(s): W01.0XXA - Fall on same level from slipping, tripping and stumbling without subsequent striking against object, initial encounter
[2023-09-28 19:55] LABS: Hematocrit (blood only) 39.6 % (37.0-47.0); Hemoglobin 13.5 g/dl (12.0-16.0); Mean Corpuscular Hemoglobin 28.4 pg (25.0-34.0); Mean Corpuscular Hgb Conc 34.1 g/dL (32.0-36.0); Mean Corpuscular Volume 83.2 fL (80.0-100.0); Mean Platelet Volume 11.4 fL (9.4-12.4); Platelet Count 240 K/uL (130-400); RDW Coefficient of Variation 13.2 % (11.5-14.5); RDW Standard Deviation 39.8 fL (36.4-46.3); Red Blood Count 4.76 M/uL (4.20-5.40); White Blood Count 16.56 K/ul (4.8-10.8)
[2023-09-28 20:05] LABS: Anion Gap 7 (3-11); BUN Creatinine Ratio 20.7 (10-20); Blood Urea Nitrogen 18 mg/dl (6-23); Calcium 9.6 mg/dl (8.6-10.3); Carbon Dioxide 25 mmol/L (21-32); Chloride 106 mmol/L (98-107); Est GFR (African American) 91.3 ml/min; Est GFR (Non-African American) 78.8 ml/min; Glucose 108 mg/dl (70-99(Fasting)); Sodium 138 mmol/L (136-145)
[2023-09-28] MEDS ORDERED: METOCLOPRAMIDE HCL INJ 5 MG/ML 2 ML VIAL IV PRN (21:28)
[2023-09-28] MEDS ORDERED: diphenhydrAMINE 50 MG/ML VIAL IV PRN (21:28)
[2023-09-28] MEDS ORDERED: ACETAMINOPHEN 325 MG TAB PO PRN (21:28)
[2023-09-28] MEDS ORDERED: diphenhydrAMINE Capsule 25 MG CAP PO PRN (21:28)
[2023-09-28] MEDS: SODIUM CHLORIDE 0.9% 1,000 ML IV SCH (22:17)
[2023-09-28] MEDS: Patient's HEIGHT &/or WEIGHT Needed STA (22:18)
[2023-09-28] MEDS: HYDROmorphone INJ 1 MG/ML SYRINGE IV PRN (22:22)
[2023-09-29] MEDS: ONDANSETRON INJ 2 MG/ML 2 ML VIAL IV PRN (04:59)
[2023-09-29] MEDS ORDERED: ceFAZolin 3000MG 3,000 MG/72.5 ML BAG IV SCH (06:00)
[2023-09-29] MEDS: oxyCODONE/ACETAMINOPHEN 5mg/325mg TAB PO PRN (06:35)
--- NOTE | 2023-09-29 06:36 | Electrocardiogram Report ---
Test Reason : Blood Pressure : / mmHG Vent. Rate : 052 BPM Atrial Rate : 052 BPM P-R Int : 156 ms QRS Dur : 072 ms QT Int : 490 ms P-R-T Axes : 035 027 033 degrees QTc Int : 455 ms Sinus bradycardia Low voltage QRS Borderline ECG When compared with ECG of 25-SEP-2020 07:09, Nonspecific T wave abnormality now evident in Anterior leads Confirmed by Armani Gonzalez ([id number]) on 09/29/2023 6:36:39 AM Referred By: REFERRED SELF Confirmed By:Brian Gonzalez
--- NOTE | 2023-09-29 07:10 | Anesthesiology Consultation ---
Date of Service September 29, 2023 Assessment & Plan Chart Review Chart Review: Acceptable Risk for Surgery and Patient NOT seen in Pre Admission Testing History Surgery Operation Date: 09/29/23 07:15 Proposed Procedures p Open Reduction Internal Fixation Ankle(Right) - Jacob Steve MD Height/Weight Height: 5 ft 10 in Weight: 100.329 kg Allergies Allergy/AdvReac Type Severity Reaction Status Date / Time amoxicillin Allergy Severe ANAPHYLAXIS Verified 09/28/23 19:53 banana Allergy Severe ANAPHYLAXIS Verified 09/28/23 19:53 clavulanic acid Allergy Severe ANAPHYLAXIS Verified 09/28/23 19:53 egg Allergy Severe ANAPHYLAXIS Verified 09/28/23 19:53 milk Allergy Severe WHOLE Verified 09/28/23 19:53 MILK-GI UPSET VOMITING-TONGUE SWELLS soy Allergy Severe ANAPHYLAXIS Verified 09/28/23 19:53 chlorhexidine Allergy Intermediate red;itchy;burning Verified 09/28/23 19:53 skin Medications Home Medications Medication Instructions Recorded Confirmed Last Taken clonazepam 1 mg tablet (Klonopin) 1 mg PO DAILY PRN Anxiety 09/28/23 09/28/23 Unknown fluticasone propionate 50 1 spray intranasal DAILY PRN 09/28/23 09/28/23 Unknown mcg/actuation nasal Congestion spray,suspension hydroxyzine HCl 50 mg tablet 50 mg PO BID 09/28/23 09/28/23 09/27/23 loratadine 10 mg tablet (Claritin) 10 mg PO DAILY PRN Congestion 09/28/23 09/28/23 Unknown multivitamin 1 tab PO DAILY 09/28/23 09/28/23 09/27/23 sertraline 100 mg tablet 150 mg PO DAILY 09/28/23 09/28/23 09/27/23 trazodone 150 mg tablet 150 mg PO HS 09/28/23 09/28/23 Unknown Active Medications Generic Name Dose Route Start Last Admin Trade Name Freq PRN Reason Stop Dose Admin Hydromorphone HCl 1 mg 09/28/23 21:28 09/29/23 04:33 Hydromorphone Inj 1 Mg/Ml Syringe IV 10/12/23 21:27 1 mg Q4H PRN Administration Pain Sodium Chloride 1,000 mls @ 75 mls/hr 09/28/23 21:28 09/28/23 22:17 Nss IV 10/28/23 21:27 75 mls/hr .[id number] RADHA Administration Ondansetron HCl 4 mg 09/28/23 21:28 09/29/23 04:59 Ondansetron Inj 2 Mg/Ml 2 Ml Vial IV 10/28/23 21:27 4 mg Q6H PRN Administration Nausea/Vomiting Oxycodone/Acetaminophen 1 - 2 tab 09/28/23 21:28 09/29/23 06:35 Oxycodone/Acetaminophen 5mg/325mg Tab PO 10/12/23 21:27 2 tab Q4H PRN Administration Pain NPO Date Last Intake of Fluids: 09/28/23 Time Last Intake of Fluids: 23:59 Date Last Intake of Solids: 09/28/23 Time Last Intake of Solids: 23:59 Past Medical History Medical History Segmental and somatic dysfunction of thoracic region Segmental and somatic dysfunction of rib cage Segmental and somatic dysfunction of abdomen and other regions Cranial somatic dysfunction Cervical somatic dysfunction History of anesthesia reaction difficulty waking Nausea and vomiting after administration of anesthetic agent severe vomiting GERD (gastroesophageal reflux disease) Anxiety Depression Uterine fibroid Asthma inhaler prn Past Family History Family History Father Family history of diabetes mellitus Myocardial infarction Denies family history of Ovarian cancer Prostate cancer Breast cancer Colorectal cancer Past Surgical History Surgical History History of right knee surgery History of removal of cyst dermoid removal off right side History of open reduction and internal fixation (ORIF) procedure right thumb--hardware removed History of carpal tunnel surgery of right wrist History of repair of right rotator cuff History of wisdom tooth extraction Hx of hysterectomy with bilateral salphingectomy Social History Smoking Status: Never smoker Do You Dip or Chew Tobacco: No Hx Alcohol Use: No alcohol intake frequency: holidays/special occasions only Hx Substance Use: No substance use type: does not use Physical Exam Vital Signs Last Vital Signs Temp 36.3 C L 09/28/23 21:15 Pulse 68 09/28/23 21:15 Resp 16 09/28/23 21:15 BP 114/76 09/28/23 21:15 Pulse Ox 97 09/28/23 21:15 O2 Del Method Room Air 09/28/23 21:15 Testing Laboratory Results 09/28/23 19:32 09/28/23 19:32
[2023-09-29] MEDS ORDERED: fentaNYL citrate PF 100 MCG/2 ML VIAL ONE (07:11)
[2023-09-29] MEDS ORDERED: MIDAZOLAM HCL 1 MG/ML 2ML VIAL ONE ×2 (07:11)
[2023-09-29] MEDS ORDERED: BUPIVACAINE/EPINEPHRINE 0.5% MPF 1:200,000 30 ML VIAL ONE (07:15)
[2023-09-29] MEDS ORDERED: BUPIVACAINE 0.5 % 5 MG/1 ML PF 10ML VIAL ONE (07:15)
[2023-09-29] MEDS ORDERED: fentaNYL citrate PF 100 MCG/2 ML VIAL IV PRN (07:19)
[2023-09-29] MEDS ORDERED: ePHEDrine sulfate 50 MG/ML AMP IV PRN (07:19)
[2023-09-29] MEDS ORDERED: ONDANSETRON INJ 2 MG/ML 2 ML VIAL IV PRN (07:19)
[2023-09-29] MEDS ORDERED: HYDROmorphone INJ 1 MG/ML SYRINGE IV PRN (07:19)
[2023-09-29] MEDS ORDERED: ATROPINE SULFATE 0.1 MG/ML 10ML SYR IV PRN (07:19)
--- NOTE | 2023-09-29 07:27 | History & Physical Report ---
Date of Service September 29, 2023 Assessment & Plan (1) Closed fracture of posterior malleolus of right tibia: (2) Closed fracture of distal end of right fibula: Plan: I discussed the diagnosis with the patient. She understands this is an unstable pattern ankle injury and that surgery is the recommended treatment. I reviewed the risks and benefits of surgery with her, alternatives to surgery, and expected outcomes. We talked about postoperative rehab including 6 weeks of nonweightbearing. After reviewing all of her options she elects to proceed with surgery. All questions were answered. Informed consent was signed. Surgical site was marked. We will proceed to the operating room this morning for open reduction internal fixation of her right ankle fracture, syndesmotic stabilization, and possible deltoid ligament repair. (3) Tear of deltoid ligament of right ankle: Admission and Anticipated Discharge Date Admission Date: September 28, 2023 History of Present Illness Chief Complaint: Right ankle pain Primary Care Provider: Ray Baig, 48-year-old female who presented the emergency department yesterday evening with her for evaluation of an injury to her right ankle. The patient reports that she was gardening outside, wearing flip-flops, and slipped on wet grass on an embankment. The patient reports twisting the ankle and feeling a popping sensation. The patient reports notable pain, and is unable to bear weight without significant discomfort. She denies head injury, neck pain, back pain or other injuries from her fall, and rates her discomfort a 10 out of 10. The patient denies any prior history of right ankle injuries. X-rays are done in the emergency room which demonstrated a bimalleolar ankle fracture with medial clear space widening consistent with a deltoid ligament and syndesmotic injury. I spoke with the emergency room physician by phone. The decision was made to have her admitted overnight and have her ankle fracture fixed today as her swelling was only mild. Patient was seen and examined this morning. She reports the splint she was placed in the emergency room is fitting her well. Denies any numbness or tingling in her toes. She does live in a house with stairs and has some concerns about this after surgery. Allergies Allergy/AdvReac Type Severity Reaction Status Date / Time amoxicillin Allergy Severe ANAPHYLAXIS Verified 09/28/23 19:53 banana Allergy Severe ANAPHYLAXIS Verified 09/28/23 19:53 clavulanic acid Allergy Severe ANAPHYLAXIS Verified 09/28/23 19:53 egg Allergy Severe ANAPHYLAXIS Verified 09/28/23 19:53 milk Allergy Severe WHOLE Verified 09/28/23 19:53 MILK-GI UPSET VOMITING-TONGUE SWELLS soy Allergy Severe ANAPHYLAXIS Verified 09/28/23 19:53 chlorhexidine Allergy Intermediate red;itchy;burning Verified 09/28/23 19:53 skin Home Medications Medication Instructions Recorded Confirmed Type clonazepam 1 mg tablet (Klonopin) 1 mg PO DAILY PRN Anxiety 09/28/23 09/28/23 History fluticasone propionate 50 1 spray intranasal DAILY PRN 09/28/23 09/28/23 History mcg/actuation nasal Congestion spray,suspension hydroxyzine HCl 50 mg tablet 50 mg PO BID 09/28/23 09/28/23 History loratadine 10 mg tablet (Claritin) 10 mg PO DAILY PRN Congestion 09/28/23 09/28/23 History multivitamin 1 tab PO DAILY 09/28/23 09/28/23 History sertraline 100 mg tablet 150 mg PO DAILY 09/28/23 09/28/23 History trazodone 150 mg tablet 150 mg PO HS 09/28/23 09/28/23 History Past Med/Surg History Problem List (Updated 09/29/23 @ 07:30 by Jacob Steve MD) Tear of deltoid ligament of right ankle Fall from slipping on slippery surface (Acute) Closed fracture of posterior malleolus of right tibia (Acute) Closed fracture of distal end of right fibula (Acute) URI (upper respiratory infection) Lower back pain Urinary hesitancy Chronic gastritis Abdominal pain, epigastric Encounter for pre-operative examination Uterine fibroid (Acute) Right flank pain (Acute) Postoperative state Post-operative state Pelvic pain Nausea and vomiting Fibroid, uterine Medical History Segmental and somatic dysfunction of thoracic region Segmental and somatic dysfunction of rib cage Segmental and somatic dysfunction of abdomen and other regions Cranial somatic dysfunction Cervical somatic dysfunction History of anesthesia reaction difficulty waking Nausea and vomiting after administration of anesthetic agent severe vomiting GERD (gastroesophageal reflux disease) Anxiety Depression Uterine fibroid Asthma inhaler prn Surgical History History of right knee surgery History of removal of cyst dermoid removal off right side History of open reduction and internal fixation (ORIF) procedure right thumb--hardware removed History of carpal tunnel surgery of right wrist History of repair of right rotator cuff History of wisdom tooth extraction Hx of hysterectomy with bilateral salphingectomy Family History Father Family history of diabetes mellitus Myocardial infarction Denies family history of Ovarian cancer Prostate cancer Breast cancer Colorectal cancer Social History Smoking Status: Never smoker Second Hand Exposure: No; Do You Dip or Chew Tobacco: No; Tobacco Cessation Education Requested by Patient: No Hx Alcohol Use: No Hx Substance Use: No Preferred Language: Thai Communication Ability: Effective Visual Impairment: No Limitations Hearing Ability: Normal Second Vp Hr Assessment Required: No Beliefs That Will Affect Care: None marital status: Current Living Situation: Family Current Living Situation Comment: with 2 children. current occupational status: employed Other Information That Helps Us Care for You: No Feels Safe at Home: Yes Safety Concerns: Feels Safe At This Time Childhood Exposure to Second-Hand Smoke: No Diet: other Diet Comment: nutri system Dental Care, Regularly: Yes Physical Activity Frequency: Daily Seatbelt Use: always Sunscreen Use: Yes Assistive Devices: Glasses Physical Exam 2 Physical Exam: On exam she is resting in bed in no acute distress. Lungs clear to auscultation bilaterally Cardiac: Regular rate and rhythm, no rubs murmurs or gallops. Right lower extremity exam: She is in a posterior new plaster slab splint. The exposed toes are warm and well-perfused. She is sensory intact to light touch over the exposed toes including the first webspace. Cap refill less than 2 seconds. She is able to wiggle her toes without difficulty. Results & Data Results & Data Vital Signs (Past 12 Hours) Vital Signs Temp Pulse Pulse Resp BP Pulse Ox Pulse Ox 09/28/23 21:15 36.3 C L 68 16 114/76 97 09/28/23 21:15 97 09/28/23 21:15 36.3 C L 68 16 114/76 97 09/28/23 20:58 65 20 97 09/28/23 20:03 68 20 122/70 93 O2 Del Method O2 Del Method 09/28/23 21:15 Room Air 09/28/23 21:15 Room Air 09/28/23 21:15 Room Air 09/28/23 20:58 Room Air 09/28/23 20:03 Room Air Diagnostic Findings I reviewed her ankle x-rays done in the emergency room. She has a Hugo C ankle fracture of the lateral malleolus as well as a posterior malleolus fracture and medial clear space widening. This is a trimalleolar equivalent injury. Code Status & VTE Plan VTE Prophylaxis Plan VTE Prophylaxis will be ordered: Yes (1) Closed fracture of posterior malleolus of right tibia Encounter type: initial encounter Qualified Code(s): S82.391A - Other fracture of lower end of right tibia, initial encounter for closed fracture (2) Closed fracture of distal end of right fibula Encounter type: initial encounter Fracture morphology: other fracture Qualified Code(s): S82.831A - Other fracture of upper and lower end of right fibula, initial encounter for closed fracture
[2023-09-29] MEDS: CLINDAMYCIN/D5W 900 MG/50 ML BAG IV SCH (07:44)
--- NOTE | 2023-09-29 10:12 | Operative Report ---
Post Operative Report Pre & Post Diagnosis Operation Date: 09/29/23 07:15 Preoperative diagnosis: Right ankle bimalleolar fracture with deltoid ligament disruption, trimalleolar equivalent. Syndesmosis disruption. Postoperative diagnosis: Right ankle bimalleolar fracture with deltoid ligament disruption, trimalleolar equivalent. Syndesmosis disruption. I identified the patient and participated in the time-out.: Yes Procedure Operation Date: 09/29/23 07:15 Open reduction internal fixation right bimalleolar ankle fracture, and syndesmosis stabilization. Surgeon Jacob Steve MD Pipe Fitter Apprentice Carlie St PA-C. No resident or fellow was available to assist. Estimated Blood Loss 25 Findings Consistent with Post-Op Diagnosis Fluids 800 cc crystalloid Specimens none Anesthesia Type General Regional Complications none Disposition Disposition: Recovery Room Indications 48-year-old female, slipped and fell yesterday injuring her right ankle. Immediate onset of pain and inability to ambulate. Presented to the emergency room yesterday evening where x-rays demonstrated a Hugo C fracture of the distal fibula, posterior malleolus fracture, syndesmotic and medial clear space widening, consistent with a trimalleolar ankle fracture equivalent with syndesmosis disruption. This is an unstable pattern injury. I do long discussion with the patient about her diagnosis and treatment options. Surgery was recommended to reduce and stabilize her fractures and give her the best possible long-term outcome. After reviewing all the risks and benefits of surgery, alternatives, and expected outcomes she elected to proceed. All questions were answered. Informed consent was signed. Description of Procedure Patient was identified in the preoperative holding area where her surgical site was marked. She was given a block by anesthesia then brought back to the operating room where she was placed on the operating room table and general anesthesia was administered. A bump was placed underneath the ipsilateral right hip. Nonsterile tourniquet was placed around the thigh. All bony prominences were padded. She was prepped and draped in usual sterile fashion. Prior to incision a multidisciplinary timeout was called. All in the room were in agreement. I began by exsanguinating the limb with an Esmarch bandage. Tourniquet was inflated to 250 mmHg. Total tourniquet time for the case was 82 minutes. A 14 cm long incision was made starting at the distal fibula and extending proximally. She had a small 5 cm long scab over the posterior aspect of the lateral malleolus that we kept 1 cm away from with her incision. I dissected down through subcutaneous tissues to the level the fascia. The superficial peroneal nerve was identified in the wound and dissected out and protected throughout the case. The fascia was incised proximally and we retracted the peroneals posteriorly. Fracture was visualized. Subperiosteal dissection was performed to expose the fractured ends. There is a small piece of comminuted bone anteriorly which was removed. Posteriorly there was another piece of comminuted bone which we elected to leave as it had good soft tissue attachments. I then used a pointed tenaculum clamp in order to reduce the fracture. This was further held with a lion-jaw clamp. I then placed a front to back lag screw perpendicular to the fracture using an Arthrex 3.0 mm cortical screw. Clamps were removed and we had a anatomic reduction. Fluoroscopy was brought in to confirm our reduction and the proper screw length on the lag s crew. Next, I brought up an Arthrex 12 hole titanium one third tubular plate. This was positioned in the appropriate location and secured with BB tacks. We checked the position of the plate using C arm fluoroscopy. Once this was complete I placed a 3.5 mm cortical screw proximally and another 3.5 mm cortical screw distal to the fracture to compress the plate onto the bone. I used the locking towers to place a gentle curve at the tip of the one third tubular plate to match the curve of the fibula. I then placed a total of 3 locking screws in the 3 distal holes of the plate. Another 3.5 mm cortical screw was placed distal to the fracture giving us a total of 7 cortices of fixation distal of the fracture. We left a hole open for the tight rope at the appropriate location. Proximally I then placed 2 more 3.5 mm cortical screws and one 3.5 mm bicortical locking screw giving us a total of 8 cortices of proximal fixation. fluoroscopy was brought in and we checked our plate, screw lengths, and reduction the fracture all of which we are very happy with. Next, I turned my attention toward the posterior malleolus fracture. We templated using fluoroscopy for the appropriate site for skin incision for a front to back cannulated screw. We then made the incision 1 cm in length and carefully spread down using hemostat directly onto the bone of the anterior lateral aspect of the distal tibia. Retractors were placed to protect the soft tissues. A guidewire for a 4.0 mm cannula was screw was then driven from front to back under fluoroscopic guidance to capture the posterior malleolus fragment. We then measured and overdrilled on the wire. A 42 mm long screw was then placed over the top of the wire. Excellent fixation was obtained. At this point we performed an external rotation stress view. This demonstrated continued syndesmotic and medial clear space widening consistent with a syndesmotic injury. Therefore fixation of the syndesmosis was indicated. A large periarticular reduction clamp was brought up onto the surgical field and we templated for the appropriate location using fluoroscopy. A small 1 cm incision was made over the medial aspect of the distal tibia. We spread through the soft tissues onto the bone and placed the isaias of the clamp onto the medial aspect of the tibia. The other isaias was placed on a screw through the plate. We then compressed the syndesmosis using the clamp. We rechecked our external rotation stress view and there was no longer any widening of the medial clear space or syndesmosis. I then placed a single Arthrex titanium tight rope through the empty hole of the plate. This was tightened down. The clamp was removed and I repeated our external rotation stress test. Again, the medial clear space was now not opening nor was the syndesmosis which I was happy with. At this point the tourniquet was let down and meticulous hemostasis was ensured. The wound was irrigated out with copious amounts normal saline. deep dermis was then closed using interrupted buried 2-0 Vicryl sutures. Skin was closed with araceli. A well-padded posterior new plaster slab splint was applied with the ankle held in the neutral position. Patient was then awoke from anesthesia, transferred to the recovery room in stable condition. Postoperative course: Patient will be readmitted to the floor. She will elevate her leg. She will work with physical therapy. We will plan on her being nonweightbearing for the next 6 weeks. 2 weeks from now we will allow her to remove the splint and begin ankle range of motion exercises and a walking boot assuming she has appropriate skin healing. X-rays to be obtained at that visit. She has a history of DVT during 2 of her pregnancies. Therefore we will plan on Xarelto for 30 days for DVT prophylaxis. I attest to the content of the Intraoperative Record and any orders documented therein. Any exceptions are noted below.
--- NOTE | 2023-09-29 10:19 | Operative Report ---
Post Operative Report Pre & Post Diagnosis Operation Date: 09/29/23 07:15 Pre-Op Diagnosis: Closed fracture of posterior malleolus of right tibia Closed fracture of distal end of right fibula Post-Op Diagnosis: Closed fracture of posterior malleolus of right tibia Closed fracture of distal end of right fibula I identified the patient and participated in the time-out.: Yes Procedure Operation Date: 09/29/23 07:15 Actual Procedures p Open Reduction Internal Fixation Right Ankle Bimalleolar Fracture, Syndesmosis Stabilization(Right) - Jacob Steve MD Surgeon Jacob Steve MD Gripper Machine Operator Carlie St PA-C. No resident or fellow was available to assist. Estimated Blood Loss 25 Findings Consistent with Post-Op Diagnosis Bimalleolar right ankle fracture Specimens none Anesthesia Type General Regional Description of Procedure Patient was taken to the operating room and placed under general anesthesia with peripheral nerve block. Time out was performed. She was prepped and draped in routine sterile fashion. Is present during the entire case , please see Dr. Steve's operative report for further details regarding today's procedure. Patient was awakened and transferred to the recovery room in stable condition. I attest to the content of the Intraoperative Record and any orders documented therein. Any exceptions are noted below.
--- NOTE | 2023-09-29 10:32 | Fluoroscopy Report ---
FL ankle RT min 3V RTN CLINICAL HISTORY: ORIF RT ANKLE TECHNIQUE: 4 views were obtained with the C-arm in the OR with the above procedure. Total fluoroscopy time was 73.9 seconds. Radiation dose was 2.11 mGy. Comparison: Comparison is made to ankle radiograph 09/28/2023 FINDINGS/IMPRESSION: Intraoperative images were obtained of open reduction internal fixation of right ankle fracture. Please correlate with intraoperative fluoroscopy and operative report. ACT 112: Negative or not required by law. Electronically signed by: Cliff Perez M.D. 09/29/2023 10:30 AM
[2023-09-29] MEDS: MEPERIDINE HCL 25 MG/ML CARP/VIAL IV PRN (10:35)
[2023-09-29] MEDS: MEPERIDINE HCL 25 MG/ML CARP/VIAL ONE (10:41)
--- NOTE | 2023-09-29 10:51 | Anesthesiology Progress Note ---
Date of Service September 29, 2023 Anesthesia Post Procedure Vital Signs Vital Signs: Temp Pulse Pulse Pulse Resp BP BP 09/29/23 10:45 36.4 C L 69 16 116/72 09/29/23 10:35 72 16 117/77 09/29/23 10:25 76 16 121/76 09/29/23 10:17 36.2 C L 85 14 115/80 09/28/23 21:15 36.3 C L 68 16 114/76 09/28/23 21:15 09/28/23 21:15 36.3 C L 68 16 114/76 09/28/23 20:58 65 20 09/28/23 20:03 68 20 122/70 09/28/23 18:44 64 18 105/81 09/28/23 16:58 36.6 C 69 20 108/71 Pulse Ox Pulse Ox O2 Del Method O2 Del Method O2 Flow Rate 09/29/23 10:45 96 Room Air 09/29/23 10:35 100 Oxymask 4 09/29/23 10:25 100 Oxymask 4 09/29/23 10:17 99 Oxymask 6 09/28/23 21:15 97 Room Air 09/28/23 21:15 97 Room Air 09/28/23 21:15 97 Room Air 09/28/23 20:58 97 Room Air 09/28/23 20:03 93 Room Air 09/28/23 18:44 99 Room Air 09/28/23 16:58 98 Room Air Pain Intensity Right Ankle: Pain Intensity: 8 Transfer of Care Handoff Completed per policy Notes Mental Status: alert / awake / arousable and participated in evaluation Patient Amnestic to Procedure: Yes Nausea / Vomiting: adequately controlled Pain: adequately controlled Airway Patency, RR, SpO2: stable & adequate BP & HR: stable & adequate Hydration State: stable & adequate Anesthetic Complications: no major complications apparent and Pt Satisfied with anesthetic care Notes: functional nerve block
[2023-09-29] MEDS ORDERED: clonazePAM 1 MG TAB PO PRN (11:07)
[2023-09-29] MEDS ORDERED: MAGNESIUM HYDROXIDE SUSP 30 ML UDC PO PRN (11:07)
[2023-09-29] MEDS ORDERED: NALOXONE HCL 0.4 MG/1 ML VIAL/CARP IV PRN (11:07)
[2023-09-29] MEDS ORDERED: LORATADINE 10 MG TAB PO PRN (11:07)
[2023-09-29] MEDS ORDERED: FLUTICASONE PROPIONATE NA SPR 16 GM BTL NAE PRN (11:30)
[2023-09-29] MEDS: oxyCODONE HCL IR 5 MG TAB (IMMEDIATE RELEASE) PO PRN (12:16)
[2023-09-29] MEDS: PANTOprazole 40 MG TAB PO SCH (12:16)
[2023-09-29] MEDS: ACETAMINOPHEN 500 MG TAB PO SCH (17:17)
[2023-09-29] MEDS: CLINDAMYCIN/D5W 600 MG/50 ML BAG IV SCH (17:17)
[2023-09-29] MEDS: hydrOXYzine HCl 25 MG TAB PO SCH (21:55)
[2023-09-29] MEDS: traZODone HCL 50 MG TAB PO SCH (22:08)
[2023-09-29] MEDS: SENNA 8.6 MG TAB PO SCH (22:09)
[2023-09-30 07:31] LABS: Hematocrit (blood only) 32.5 % (37.0-47.0); Hemoglobin 10.9 g/dl (12.0-16.0); Mean Corpuscular Hemoglobin 28.3 pg (25.0-34.0); Mean Corpuscular Hgb Conc 33.5 g/dL (32.0-36.0); Mean Corpuscular Volume 84.4 fL (80.0-100.0); Mean Platelet Volume 11.9 fL (9.4-12.4); Platelet Count 164 K/uL (130-400); RDW Coefficient of Variation 13.2 % (11.5-14.5); RDW Standard Deviation 40.6 fL (36.4-46.3); Red Blood Count 3.85 M/uL (4.20-5.40)
[2023-09-30 07:48] LABS: BUN Creatinine Ratio 18.9 (10-20); Calcium 8.4 mg/dl (8.6-10.3); Est GFR (African American) 87.6 ml/min; Est GFR (Non-African American) 75.6 ml/min; Potassium 3.8 mmol/L (3.5-5.1)
[2023-09-30] MEDS: MULTIVITAMIN TAB PO SCH (08:31)
[2023-09-30] MEDS: SERTRALINE HCL 50 MG TABLET PO SCH (08:31)
[2023-09-30] MEDS: RIVAROXABAN 10 MG TABLET PO SCH (08:31)
--- NOTE | 2023-09-30 09:04 | Orthopedic Progress Note ---
Date of Service September 30, 2023 Assessment & Plan (1) Status post ORIF of fracture of ankle: Plan: PT OT this morning. She is nonweightbearing on the right lower extremity. Xarelto for DVT prophylaxis. May discharge home today if passes PT. Follow-up in the orthopedic clinic in 2 weeks for splint removal, staple removal, and x-rays out of the splint. Will transition to either a cam walking boot or a cast at that time. Admission and Anticipated Discharge Date Admission Date: September 28, 2023 Subjective Postop day 1 following open reduction internal fixation right ankle bimalleolar fracture and syndesmosis stabilization. Patient reports her nerve block wore off overnight. She has some increased pain this morning. However the m edications are giving her good pain relief. She is getting a little bit of nausea, however trisha alejandra and antinausea medications are helping. Physical Exam Physical Exam: Afebrile, vital signs stable. she is resting in bed in no acute distress. Right lower extremity exam: She is in a posterior new plaster slab splint. The exposed toes are warm and well-perfused. She is sensory intact to light touch over the exposed toes including the first webspace. Cap refill less than 2 seconds. She is able to wiggle her toes without difficulty. Results & Data Vital Signs (Past 12 Hours) Vital Signs Temp Pulse Resp BP BP Pulse Ox O2 Del Method 09/30/23 07:30 36.4 C L 73 16 94/59 L 95 Room Air 09/30/23 04:59 36.4 C L 72 16 100/65 96 Room Air 09/29/23 22:47 36.9 C 78 16 110/64 98 Room Air Diagnostic Findings Fluoroscopy films taken at the time of surgery showed the fracture anatomically reduced hardware in good position.
[2023-09-30] MEDS: HYDROmorphone INJ 0.5 MG/0.5 ML SYR IV PRN (09:58)
--- NOTE | 2023-10-01 10:56 | Orthopedic Progress Note ---
Date of Service October 01, 2023 Assessment & Plan (1) Status post ORIF of fracture of ankle: Plan: Postop day 2-status post ORIF with syndesmotic fixation of her right ankle with Dr. Steve PT and OT. Nonweightbearing right lower extremity at all times. Use walker or knee scooter to assist with ambulation. Ice and elevation as needed for pain and swelling. Keep splint on at all times. Keep it clean and dry. Allowed for range of motion of the right knee and hip and wiggling toes as tolerated. Pain medication as prescribed. Xarelto 10 mg daily for DVT prophylaxis. Also DINA stockings on the left leg and SCDs. Regular diet. If safe in PT today and will plan for discharge to home. A prescription for a walker and knee scooter were placed on her chart. Follow-up as an outpatient as scheduled. Call with any problems, questions or concerns. Dr. Steve aware of today's findings. Will plan to discharge home today if safe in PT and pain controlled. Admission and Anticipated Discharge Date Admission Date: September 28, 2023 Subjective Patient is doing fairly well today. She states that she does have a lot of pain in the ankle with the oxycodone seems to be helping. She does feel that she still is ready to go home today. She states that she did feel better at home. She has been able to get up out of bed with assistance and transfer to the bedside commode. She has not done a lot of walking. She Denies any issues with the splint except that it feels "very heavy". Denies any numbness or tingling in her toes and states that she does believe that the nerve block has "worn off". Nausea has improved with drinking trisha alejandra. Physical Exam Musculoskeletal: Exam focused on her right lower extremity: The splint is clean, dry and intact. Her toes move freely. Capillary fill is brisk. Nontender with palpation of the toes themselves. She is able to independently straight leg raise and lift the right leg. No knee effusion. Tolerates gentle knee range of motion. The splint is not rubbing around any of the skin edges. Her leg is elevated on 2 pillows. Results & Data Vital Signs (Past 12 Hours) Vital Signs Temp Pulse Resp BP Pulse Ox O2 Del Method 10/01/23 07:44 36.9 C 59 L 18 91/62 L 97 Room Air
--- NOTE | 2023-10-01 11:08 | Discharge Summary ---
Date of Service October 01, 2023 Admission HPI Per Admitting Provider 48-year-old female who presented the emergency department yesterday evening with her for evaluation of an injury to her right ankle. The patient reports that she was gardening outside, wearing flip-flops, and slipped on wet grass on an embankment. The patient reports twisting the ankle and feeling a popping sensation. The patient reports notable pain, and is unable to bear weight without significant discomfort. She denies head injury, neck pain, back pain or other injuries from her fall, and rates her discomfort a 10 out of 10. The patient denies any prior history of right ankle injuries. X-rays are done in the emergency room which demonstrated a bimalleolar ankle fracture with medial clear space widening consistent with a deltoid ligament and syndesmotic injury. I spoke with the emergency room physician by phone. The decision was made to have her admitted overnight and have her ankle fracture fixed today as her swelling was only mild. Patient was seen and examined this morning. She reports the splint she was placed in the emergency room is fitting her well. Denies any numbness or tingling in her toes. She does live in a house with stairs and has some concerns about this after surgery. Discharge Data Consultations 09/28/23 19:01 ED Decision to Admit Stat Procedures Performed Operation Date: 09/29/23 07:15 Actual Procedures p Open Reduction Internal Fixation Right Ankle Bimalleolar Fracture, Syndesmosis Stabilization(Right) - Jacob Steve MD Hospital Course (1) Status post ORIF of fracture of ankle: Patient was admitted to [facility] on September 28, 2023 with a right bimalleolar ankle fracture. Surgical intervention was recommended. She was made n.p.o. after midnight. She underwent an open reduction internal fix ation with syndesmotic fixation with Dr. Steve on September 29, 2023. Surgery was performed with general anesthesia and a peripheral nerve block. She was given 2 g of IV Ancef for surgical prophylaxis which was continued for 24 hours after surgery. She tolerated the procedure well without any intraoperative complications. Postoperatively she was allowed out of bed, with the assistance of a walker or knee scooter and nonweightbearing on the right lower extremity at all times. She was placed in a posterior and coaptation splint of the right lower extremity. Advised to keep this clean and dry. Encouraged ice and elevation of the right lower extremity. Physical therapy and Occupational Therapy consults were placed for gait training and assessment of safety for return home. She was given a regular diet. On postoperative day 1 she did develop a little nausea which has been helped with trisha alejandra. She has been able to get up out of bed to do 1 step to the bedside commode. Her home medications were continued. She was given Tylenol, Toradol, oxycodone, IV Dilaudid for postoperative pain control. On postoperative day 1 it was determined that she was safe enough in PT to return home but she did have a lot of pain so she wished and it was determined that she would need to stay another 24 hours for better pain control. On postoperative day 2 she was doing slightly better. The nausea had been improved. On postoperative day #2 she continued to have pain and she did not feel that it was controlled enough for her to be discharged home. She was kept another night for pain control. On post op day #3, her pain was well-controlled with oral oxycodone. She did well out of bed with PT and OT and was deemed safe for discharge to home. She was discharged to her home in stable condition on October 02, 2023.
[2023-10-01 21:12] VITALS: TEMP 98.1
[2023-10-02 06:56] VITALS: BP 109/73; PULSE 73; RESP 19; O2SAT 95
--- NOTE | 2023-10-02 19:56 | Orthopedic Progress Note ---
Date of Service October 02, 2023 Assessment & Plan (1) Status post ORIF of fracture of ankle: Plan: The patient was educated regarding today's findings. Conservative care measures were discussed. I think it is fine for her to go home this morning. Written discharge instructions were provided. Nonweightbearing status on the right leg. Use her crutches or walker. Avoid getting the cast wet. Continue with ice, elevation, and oral pain medication, including oxycodone, she has already been started on Xarelto. Continue this once daily for the next 30 days. Prescriptions for her medications have already been sent to her pharmacy. Follow-up in the office in 10 days as scheduled. Call with any other concerns. Admission and Anticipated Discharge Date Admission Date: September 28, 2023 Subjective This 48-year-old female is seen today in her room. She is 3 days status post right ankle ORIF. Patient was supposed to go home last evening, but stated she had too much pain and insisted on staying. This morning she states the ankle is fair, but she has not done anything yet. She is laying in bed. Her is sitting at bedside. She states she would like to go home today. She denies any chest pain, shortness of breath, abdominal pain, nausea or vomiting. Physical Exam Physical Exam: General: Well-developed, well-nourished, middle-aged female, in no acute distress. Laying in bed. Alert and oriented. Skin: Warm and dry with good turgor. No significant edema at her toes. There is a postsurgical splint in place on the right ankle. No visible ecchymosis or edema at the knee or thigh. Musculoskeletal: The patient has intact motor function of her toes. Ankle range of motion is not attempted secondary to her splint. She has intact hip and ankle motion. Neurologic: Gross sensation is intact across the toes of the right foot by soft touch.
== END 2023-10-02 13:34 | disposition home or self-care (01) | DRG 494 ==
LOC: ED 16:35 → 3N 19:29
DX: W01.0XXA Fall on same level from slipping, tripping and stumbling without subsequent striking against object, initial encounter; Z88.8 Allergy status to other drugs, medicaments and biological substances; Z83.3 Family history of diabetes mellitus; S93.421A Sprain of deltoid ligament of right ankle, initial encounter; Z88.1 Allergy status to other antibiotic agents; Y92.017 Garden or yard in single-family (private) house as the place of occurrence of the external cause; Y93.H2 Activity, gardening and landscaping; S82.841A Displaced bimalleolar fracture of right lower leg, initial encounter for closed fracture; K21.9 Gastro-esophageal reflux disease without esophagitis